=== PATIENT | female | born 1990 | race African-American/Black ===

== ENCOUNTER 2022-03-10 19:01 | Emergency (ER) | payer SELFPAY ==
--- NOTE | 2022-03-10 20:19 | RAD REPORT ---
EXAM DESCRIPTION: CT - Head Brain Wo Cont - 03/10/2022 8:12 pm CLINICAL HISTORY: Headache, uncomplicated Headache, drowsiness COMPARISON: No comparisons TECHNIQUE: All CT scans are performed using dose optimization technique as appropriate and may inclu de automated exposure control or mA/KV adjustment according to patient size. FINDINGS: No intracranial hemorrhage, hydrocephalus or extra-axial fluid collection.No areas of brai n edema or evidence of midline shift. The paranasal sinuses and mastoids are clear. The calvarium is intact. IMPRESSION: No acute intracranial abnormality.
--- NOTE | 2022-03-10 20:37 | RAD REPORT ---
EXAM DESCRIPTION: RAD - Chest Single View - 03/10/2022 8:28 pm CLINICAL HISTORY: CHEST PAIN Chest pain. COMPARISON: No comparisons FINDINGS: Portable technique limits examination quality. The lungs are grossly clear. The heart is upper limit of normal in size. No displaced fractures.
[2022-03-10 20:40] LABS: Absolute Lymphocytes (CBC) 3.1 K/uL (0.7-4.9); Hematocrit 34.3 % (36.0-45.0); Lymphocytes % 43.9 % (15.3-44.8); RBC Red Blood Cell Count 4.38 M/uL (3.86-4.86)
[2022-03-10 20:42] LABS: Urine Blood Negative (Negative); Urine Glucose Negative (Negative); Urine Protein Negative (Negative); Urine Specific Gravity >=1.030 (1.005-1.030); Urine pH 5.5 (5.0-7.0)
[2022-03-10 20:59] LABS: Protime INR 1.09
[2022-03-10 21:15] LABS: ALT/SGPT 12 U/L (12-78); AST/SGOT 8 U/L (15-37); Albumin 3.2 g/dL (3.4-5.0); Alkaline Phosphatase 67 U/L (45-117); BUN Blood Urea Nitrogen 9 mg/dL (7-18); Bicarbonate 26 mmol/L (21-32); Bilirubin Total 0.3 mg/dL (0.2-1.0); Glucose Level 91 mg/dL (74-106); Magnesium 1.8 mg/dL (1.8-2.4); NT PRO-BNP 33 pg/mL (<125); Potassium 3.8 mmol/L (3.5-5.1); Protein, Total 7.2 g/dL (6.4-8.2); Sodium Level 139 mmol/L (136-145)
[2022-03-10 21:34] LABS: Barbiturates NEGATIVE (NEGATIVE); Benzodiazepines NEGATIVE (NEGATIVE); Bilirubin Direct < 0.1 mg/dL (0-0.2); Cocaine NEGATIVE (NEGATIVE); METHAMPHETAM NEGATIVE (NEGATIVE); Methadone NEGATIVE (NEGATIVE); Opiates NEGATIVE (NEGATIVE); Phencyclidine NEGATIVE (NEGATIVE); THC Cannibis POSITIVE (NEGATIVE); Troponin High Sensitivity < 3.0 pg/mL (<58.9)
[2022-03-10] MEDS ORDERED: NA CHLORIDE 0.9% 1,000 ML ONE (21:41)
[2022-03-10] MEDS ORDERED: ACETAMINOPHEN 500 MG TAB ONE (21:41)
[2022-03-10] MEDS ORDERED: DIPHENHYDRAMINE 50 MG/ML VIAL ONE (21:41)
[2022-03-10] MEDS ORDERED: METOCLOPRAMIDE 10 MG/2mL INJ ONE (21:41)
--- NOTE | 2022-03-10 22:29 | EDPHYS ---
Physician Documentation [facility] Name: Porsha Andrade Age: 31 yrs Sex: Female : 1990 Arrival Date: 03/10/2022 Time: 19:06 Bed 7 Private MD: ED Physician Anselmo Hunter HPI: 03/10 20:05 This 31 yrs old Black Female presents to ER via Ambulatory with complaints of Nausea, mh7 Weakness, Migraine. 20:05 The patient complains of pain to the forehead. The patient describes the headache as mh7 intermittent. Onset: The symptoms/episode began/occurred 1 week(s) ago. Associated signs and symptoms: Pertinent positives: nausea, weakness, generalized, Pertinent negatives: altered mental status, dizziness, fever, malaise, neck stiffness, paresthesias, Photophobia rash, sinus congestion, sinus tenderness, vision changes, vision loss, vomiting, vertigo. Severity of symptoms: At its worst the pain was moderate, 2 day(s) ago, in the emergency department the pain has improved, moderately. Headache History: The patient has had previous headaches and this one is similar to previous episodes. The symptoms are alleviated by over the counter pain medication, OTC NSAIDS, quiet, sleep, the symptoms are aggravated by noise, stress. The patient has experienced similar episodes in the past, multiple times. States that she has had migraines for 15+ years but has not seen a doctor regularly. States that she has headaches almost daily. Intermittent bilateral upper chest tightness for months. 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 - Social history:: Smoking status: . ROS: 20:05 Constitutional: Negative for fever, chills, and weight loss, Eyes: Negative for injury, mh7 pain, redness, and discharge, ENT: Negative for injury, pain, and discharge, Neck: Negative for injury, pain, and swelling, Respiratory: Negative for shortness of breath, cough, wheezing, and pleuritic chest pain. 20:05 Back: Negative for injury and pain, : Negative for injury, bleeding, discharge, and swelling, MS/Extremity: Negative for injury and deformity, Skin: Negative for injury, rash, and discoloration, Psych: Negative for depression, anxiety, suicide ideation, homicidal ideation, and hallucinations, Allergy/Immunology: Negative for hives, rash, and allergies, Endocrine: Negative for neck swelling, polydipsia, polyuria, polyphagia, and marked weight changes, Hematologic/Lymphatic: Negative for swollen nodes, abnormal bleeding, and unusual bruising. 20:05 Abdomen/GI: Negative for abdominal pain, vomiting, diarrhea, constipation, abdominal cramps, abdominal distension, anorexia, dysphagia, hematemesis, black/tarry stool, rectal pain, rectal bleeding, bowel incontinence, flatulence. Exam: 20:05 Head/Face: Normocephalic, atraumatic. Eyes: Pupils equal round and reactive to light, mh7 extra-ocular motions intact. Lids and lashes normal. Conjunctiva and sclera are non-icteric and not injected. Cornea within normal limits. Periorbital areas with no swelling, redness, or edema. Neck: Trachea midline, no thyromegaly or masses palpated, and no cervical lymphadenopathy. Supple, full range of motion without nuchal rigidity, or vertebral point tenderness. No Meningismus. Chest/axilla: Normal chest wall appearance and motion. Nontender with no deformity. No lesions are appreciated. Cardiovascular: Regular rate and rhythm with a normal S1 and S2. No gallops, murmurs, or rubs. Normal PMI, no JVD. No pulse deficits. Respiratory: Lungs have equal breath sounds bilaterally, clear to auscultation and percussion. No rales, rhonchi or wheezes noted. No increased work of breathing, no retractions or nasal flaring. Abdomen/GI: Soft, non-tender, with normal bowel sounds. No distension or tympany. No guarding or rebound. No evidence of tenderness throughout. Back: No spinal tenderness. No costovertebral tenderness. Full range of motion. Skin: Warm, dry with normal turgor. Normal color with no rashes, no lesions, and no evidence of cellulitis. MS/ Extremity: Pulses equal, no cyanosis. Neurovascular intact. Full, normal range of motion. Neuro: Awake and alert, GCS 15, oriented to person, place, time, and situation. Cranial nerves II-XII grossly intact. Motor strength 5/5 in all extremities. Sensory grossly intact. Cerebellar exam normal. Normal gait. Psych: Awake, alert, with orientation to person, place and time. Behavior, mood, and affect are within normal limits. 20:05 Constitutional: The patient appears in no acute distress, alert, awake, uncomfortable. Vital Signs: 19:14 BP 110 / 85; Pulse 64; Resp 16; Temp 98.2(TE); Pulse Ox 100% on R/A; Weight 83.78 kg ll3 (M); Height 5 ft. 3 in. (160.02 cm) (R); Pain 5/10; 21:00 BP 118 / 63; Pulse 64; Resp 16; Pulse Ox 100% ; vc1 21:45 BP 123 / 56; Pulse 64; Resp 17; Pulse Ox 100% on R/A; vc1 19:14 Body Mass Index 32.72 (83.78 kg, 160.02 cm) ll3 [place] Coma Score: 22:25 Eye Response: spontaneous(4). Verbal Response: oriented(5). Motor Response: obeys mh7 commands(6). Total: 15. MDM: 22:25 Differential diagnosis: cluster headache, hypertensive headache, intracerebral mh7 hemorrhage, migraine, tension headache. Data reviewed: vital signs, nurses notes, lab test result(s), cardiac enzymes, CBC, electrolytes, urinalysis, urine drug screen, EKG, radiologic studies, CT scan, plain films. Data interpreted: Pulse oximetry: on room air is 100 %. Interpretation: normal. 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 Response to treatment: the patient's symptoms have resolved after treatment, the patient's blood pressure is in an acceptable range, mental status has returned to baseline, the patient no longer shows bradycardia, the patient is not short of breath, the patient is not tachycardic, the patient's pain is gone, the patient's temperature has normalized, the patient is now symptom free, patient is well hydrated. 22:28 Patient medically screened. 03/10 19:56 Order name: Basic Metabolic Panel; Complete Time: 21:52 03/10 19:56 Order name: CBC with Diff; Complete Time: 21:33 03/10 19:56 Order name: LFT's; Complete Time: 21:52 03/10 19:56 Order name: Magnesium; Complete Time: 21:52 03/10 19:56 Order name: NT PRO-BNP; Complete Time: 21:52 03/10 19:56 Order name: PT-INR; Complete Time: 21:33 03/10 19:56 Order name: Troponin HS; Complete Time: 21:52 03/10 19:56 Order name: XRAY Chest (1 view); Complete Time: 20:52 03/10 19:56 Order name: CT Head Brain wo Cont; Complete Time: 20:52 03/10 19:56 Order name: UDS; Complete Time: 21:52 03/10 20:42 Order name: Urine Dipstick-Ancillary; Complete Time: 20:52 EDMS 03/10 20:42 Order name: Urine --Ancillary (enter results); Complete Time: 21:33 9 03/10 19:56 Order name: EKG; Complete Time: 19:57 03/10 19:56 Order name: Cardiac monitoring; Complete Time: 21:56 03/10 19:56 Order name: EKG - Nurse/Tech; Complete Time: 21:13 03/10 19:56 Order name: IV Saline Lock; Complete Time: 21:13 03/10 19:56 Order name: Labs collected and sent; Complete Time: 21:14 03/10 19:56 Order name: O2 Per Protocol; Complete Time: 21:14 03/10 19:56 Order name: O2 Sat Monitoring; Complete Time: 21:14 03/10 19:56 Order name: Urine Dipstick-Ancillary (obtain specimen); Complete Time: 21:14 [facility] 03/10 19:56 Order name: Urine Test (obtain specimen); Complete Time: 21: Administered Medications: 21:55 Drug: NS 0.9% 1000 ml Route: IV; Rate: 1000 ml; Site: right antecubital; ke1 22:00 Follow up: IV Status: Completed infusion; IV Intake: 700ml vc1 21:55 Drug: Reglan (metoCLOPramide) 10 mg Route: IVP; Site: right antecubital; ke1 22:00 Follow up: Response: No adverse reaction; Marked relief of symptoms vc1 21:55 Drug: Benadryl (diphenhydrAMINE) 50 mg Route: IVP; Site: right antecubital; ke1 22:00 Follow up: Response: No adverse reaction; Marked relief of symptoms vc1 21:55 Drug: Tylenol 1000 mg Route: PO; ke1 22:00 Follow up: Response: No adverse reaction; Marked relief of symptoms; Pain is decreased vc1 Disposition Summary: 03/10/22 22:28 Discharge Ordered Location: Home [facility] Problem: an acute exacerbation [facility] Symptoms: have improved [facility] Condition: Stable [facility] Diagnosis - Headache 7 - Chest pain, unspecified 7 - Cannabis abuse [facility] Followup: [facility] - With: Private Physician - When: 1 - 2 days - Reason: Worsening of condition, Recheck today's complaints, Continuance of care, Re-evaluation by your physician Followup: [facility] - With: Emanuel Milligan MD - When: 1 - 2 days - Reason: Worsening of condition, Recheck today's complaints Discharge Instructions: - Discharge Summary Sheet [facility] - General Headache Without Cause mh7 - Cannabis Use Disorder mh7 - Nonspecific Chest Pain, Adult, [id number] [facility] Forms: - Medication Reconciliation Form 7 - Family Work Release [facility] - Thank You Letter 7 - Antibiotic Education 7 - Prescription Opioid Use [facility] Signatures: Dispatcher [employer] Anselmo Gresham MD MD 7 Maria Eugenia Arguelles RN RN ll3 Rivka Zhou RN RN ke1 [place] Drake RN vc1
--- NOTE | 2022-03-10 22:29 | ER ---
Nurse's Notes [facility] Name: Posrha Andrade Age: 31 yrs Sex: Female : 1990 Arrival Date: 03/10/2022 Time: 19:06 Bed 7 Private MD: Diagnosis: Headache;Chest pain, unspecified;Cannabis abuse Presentation: 03/10 19:14 Chief complaint: Patient states: C/ of weakness, migraine, CP, and nausea, "I've ll3 noticed when I take my medicine for my headaches it doesn't work, I will go to sleep and it will come back", states CP started 2 days ago. Coronavirus screen: Vaccine status: Patient reports being unvaccinated. At this time, the client does not indicate any symptoms associated with coronavirus-19. Ebola Screen: No symptoms or risks identified at this time. Initial Sepsis Screen: Does the patient meet any 2 criteria? No. Patient's initial sepsis screen is negative. Does the patient have a suspected source of infection? No. Patient's initial sepsis screen is negative. Risk Assessment: Do you want to hurt yourself or someone else? Patient reports no desire to harm self or others. Onset of symptoms was March 08, 2022. Care prior to arrival: Medication(s) given: Motrin, 400 mg, AT 1820. 19:14 Method Of Arrival: Ambulatory ll3 19:14 Acuity: CRISTOBAL 3 ll3 Triage Assessment: 19:20 General: Appears uncomfortable, Behavior is calm, cooperative. Pain: Complains of pain ll3 in H/A Pain currently is 6 out of 10 on a pain scale. Neuro: Reports headache. Cardiovascular: Denies chest pain, States "I had chest tightness earlier today but not right now". GI: Reports diarrhea, nausea, Patient currently denies vomiting. 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 - Social history:: Smoking status: . Screenin:20 Abuse screen: Denies threats or abuse. Nutritional screening: No deficits noted. vc1 Tuberculosis screening: No symptoms or risk factors identified. Fall Risk None identified. Assessment: 19:20 Reassessment: See triage assessment. vc1 19:20 GI: Abdomen is flat, non-distended. vc1 20:00 Reassessment: Patient and/or family updated on plan of care and expected duration. Pain vc1 level reassessed. Patient is alert, oriented x 3, equal unlabored respirations, skin warm/dry/pink. 21:00 Reassessment: Patient and/or family updated on plan of care and expected duration. Pain vc1 level reassessed. Patient is alert, oriented x 3, equal unlabored respirations, skin warm/dry/pink. Patient denies pain at this time. Patient states feeling better. Patient states symptoms have improved. Vital Signs: 19:14 BP 110 / 85; Pulse 64; Resp 16; Temp 98.2(TE); Pulse Ox 100% on R/A; Weight 83.78 kg ll3 (M); Height 5 ft. 3 in. (160.02 cm) (R); Pain 5/10; 21:00 BP 118 / 63; Pulse 64; Resp 16; Pulse Ox 100% ; vc1 21:45 BP 123 / 56; Pulse 64; Resp 17; Pulse Ox 100% on R/A; vc1 19:14 Body Mass Index 32.72 (83.78 kg, 160.02 cm) ll3 [place] Coma Score: 22:25 Eye Response: spontaneous(4). Verbal Response: oriented(5). Motor Response: obeys mh7 commands(6). Total: 15. ED Course: 19:06 Patient arrived in ED. rg4 19:20 Triage completed. ll3 19:20 Arm band placed on right wrist. ll3 19:30 Patient has correct armband on for positive identification. Placed in gown. Bed in low vc1 position. Call light in reach. Side rails up X2. Adult w/ patient. panel monitor on. Pulse ox on. NIBP on. 19:33 Rivka Zhou RN is Primary Nurse. ke1 19:35 Anselmo Hunter MD is Attending Physician. mh7 20:13 CT Head Brain wo Cont In Process Unspecified. EDMS 20:24 X-ray completed. Portable x-ray completed in exam room. Patient tolerated procedure mh1 well. 20:30 XRAY Chest (1 view) In Process Unspecified. EDMS 21:13 Inserted saline lock: 20 gauge in right antecubital area, using aseptic technique. ke1 22:27 Emanuel Milligan MD is Referral Physician. [facility] 22:50 No provider procedures requiring assistance completed. vc1 22:50 IV discontinued, intact, bleeding controlled, No redness/swelling at site. Pressure vc1 dressing applied. Administered Medications: 21:55 Drug: NS 0.9% 1000 ml Route: IV; Rate: 1000 ml; Site: right antecubital; ke1 22:00 Follow up: IV Status: Completed infusion; IV Intake: 700ml vc1 21:55 Drug: Reglan (metoCLOPramide) 10 mg Route: IVP; Site: right antecubital; ke1 22:00 Follow up: Response: No adverse reaction; Marked relief of symptoms vc1 21:55 Drug: Benadryl (diphenhydrAMINE) 50 mg Route: IVP; Site: right antecubital; ke1 22:00 Follow up: Response: No adverse reaction; Marked relief of symptoms vc1 21:55 Drug: Tylenol 1000 mg Route: PO; ke1 22:00 Follow up: Response: No adverse reaction; Marked relief of symptoms; Pain is decreased vc1 Intake: 22:00 IV: 700ml; Total: 700ml. vc1 Outcome: 22:28 Discharge ordered by . 7 22:50 Discharged to home ambulatory, with significant other. vc1 22:50 Condition: good 22:50 Discharge instructions given to patient, Instructed on discharge instructions, follow up and referral plans. Demonstrated understanding of instructions, follow-up care. 22:52 Patient left the ED. vc1 Signatures: Dispatcher [employer] EDMS Becky Gallardo 1 Safia Mckay rg4 Anselmo Hunter MD MD 7 Maria Eugenia Arguelles RN RN 3 [place] Drake RN RN 1 Rivka Zhou RN RN 1
[2022-03-11 01:51] VITALS: TEMP 98.2; O2SAT 100
[2022-03-11 01:53] VITALS: BP 123/56
--- NOTE | 2022-03-11 07:44 | EKG ---
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
== END 2022-03-10 22:52 | disposition home or self-care (01) ==
LOC: ER 19:01
DX: R51.9 Headache, unspecified (principal); R07.9 Chest pain, unspecified; F12.10 Cannabis abuse, uncomplicated; Z88.0 Allergy status to penicillin
CPT/HCPCS: 36415; 70450; 71045; 80048; 80076; 80307; 81003; 81025; 83735; 83880; 84484; 85025; 85610; 93005; 96374; 96375; 99284; J1200; J2765; J7030

== ENCOUNTER 2022-05-04 12:14 | Emergency (ER) | payer SELFPAY ==
[2022-05-04] MEDS ORDERED: IBUPROFEN 400 MG TAB ONE (12:46)
--- NOTE | 2022-05-04 13:11 | RAD REPORT ---
EXAM DESCRIPTION: RAD - Knee Left 3 View - 05/04/2022 12:59 pm CLINICAL HISTORY: PAIN COMPARISON: No comparisons FINDINGS: No acute fracture. No malalignment. No significant focal degenerative changes. Partially i gene plate and screw fixation in the mid femur. IMPRESSION: No acute osseous abnormality involving the left knee.
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
[2022-05-04] MEDS ORDERED: HYDROCODONE/APAP 7.5/325 MG TAB ONE (14:57)
[2022-05-04 15:37] VITALS: BP 98/67; TEMP 98.6; O2SAT 100
== END 2022-05-04 15:19 | disposition home or self-care (01) ==
LOC: ER 12:14
DX: S83.92XA Sprain of unspecified site of left knee, initial encounter (principal); Z88.0 Allergy status to penicillin
CPT/HCPCS: 99283

== ENCOUNTER 2022-05-19 13:35 | Emergency (ER) | payer SELFPAY ==
[2022-05-19 15:48] LABS: Urine Blood Negative (Negative); Urine Glucose Negative (Negative); Urine Protein Negative (Negative); Urine Specific Gravity >=1.030 (1.005-1.030); Urine pH 5.5 (5.0-7.0)
[2022-05-19 15:53] LABS: Absolute Lymphocytes (CBC) 2.7 K/uL (0.7-4.9); Hematocrit 34.9 % (36.0-45.0); Lymphocytes % 31.9 % (15.3-44.8); MCV 78.2 fL (80-100); MPV 6.9 fL (7.6-11.3); RBC Red Blood Cell Count 4.46 M/uL (3.86-4.86)
[2022-05-19 16:11] LABS: Albumin 3.5 g/dL (3.4-5.0); Bilirubin Total 0.6 mg/dL (0.2-1.0); Potassium 3.3 mmol/L (3.5-5.1); Protein, Total 7.8 g/dL (6.4-8.2)
[2022-05-19] MEDS ORDERED: DICYCLOMINE HCL 20 MG/2 ML AMP IM ONE (16:26)
[2022-05-19] MEDS ORDERED: ACETAMINOPHEN 500 MG TAB ONE (16:26)
[2022-05-19] MEDS ORDERED: POTASSIUM 25 MEQ EFFERV TAB ONE (17:30)
--- NOTE | 2022-05-19 18:18 | RAD REPORT ---
EXAM DESCRIPTION: US - Transvaginal OB - 05/19/2022 6:03 pm CLINICAL HISTORY: with pelvic pain COMPARISON: None. FINDINGS: The uterus measures 10 x 5 x 6 centimeters . A sac is present within the endometrium alberto uring 9 x 15 x 9 millimeters. A pole is not seen. A yolk sac not visualized. Right ovary normal in size and echotexture 1.5 centimeter hemorrhagic cyst. Left ovary not seen secon madelyn to overlying bowel gas The right and left adnexa unremarkable Small amount of free fluid IMPRESSION: Sac within and the endometrium most likely indicating an intrauterine . This ma y represent a viable in which the pole is not seen secondary to the early gestation. Incomplete is another consideration. Less likely this represents a pseudo gestational sac associated with an ectopic . This all should be correlated clinically with appropriate lab values. Followup endovaginal sonogram w ith serial beta hCGs in 1 week recommend
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
== END 2022-05-19 18:56 | disposition home or self-care (01) ==
LOC: ER 13:35
DX: O20.0 Threatened abortion (principal); Z3A.01 Less than 8 weeks gestation of pregnancy; Z88.0 Allergy status to penicillin
CPT/HCPCS: 36415; 76817; 80053; 81003; 83690; 84702; 85025; 86901; J0500

== ENCOUNTER 2022-05-21 18:02 | Emergency (ER) | payer SELFPAY ==
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
[2022-05-21 20:09] VITALS: BP 103/72; TEMP 97.9; O2SAT 100
== END 2022-05-21 19:30 | disposition home or self-care (01) ==
LOC: ER 18:02
DX: O02.81 Inappropriate change in quantitative human chorionic gonadotropin (hCG) in early pregnancy (principal)
CPT/HCPCS: 36415; 84702; 99281

== ENCOUNTER 2022-07-06 10:59 | Emergency (ER) | payer OTHER ==
--- OUTSIDE RECORDS SUMMARY | 2022-07-06 11:03 | XMS REPORT | Continuity of Care Document ---
:1990 Author Organization [facility] t Address [address] [place] [address] Care Team Providers Name Role Phone Pcp, Patient Does Not Have A Primary Care Physician +[id number] Merle Coronado MD Attending Clinician Payers Payer Name Policy Type Policy Number Effective Date Expiration Date S ource Problems Condition Condition Condition Status Onset Resolution Last Treating Co mments Source Name Details Category Date Date Treatment Clinician Date Obesity Obesity Disease Active Univers (BMI (BMI 8-05 ity of 30-39.9) 30-39.9) 00:00: [address] Allergies, Adverse Reactions, Alerts Allergy Allergy Status Severity Reaction(s) Onset Inactive Treating Comm ents Source Name Type Date Date Clinician Penicill Drug Active Hives Univers ins Allergy 8-05 ity of 00:00: [address] Social History Social Habit Start Date Stop Date Quantity Comments Source ASSERTION 2022-04-27 [facility] 00:00:00 [facility] History of Passive smoker [facility] tobacco use [facility] Exposure to 2022-06-07 2022-06-17 Not sure [facility] SARS-CoV-2 00:00:00 09:54:00 [facility] (event) [place] Tobacco use and 2022-06-17 2022-06-17 Smokeless tobacco Un iversity of exposure 00:00:00 00:00:00 non-user [facility] Alcohol intake 2022-06-17 2022-06-17 Ex-drinker [facility] 00:00:00 00:00:00 (finding) [facility] Sex Assigned At [birth year] [facility] 00:00:00 00:00:00 [facility] Smoking Status Start Date Stop Date Source Never smoked tobacco [facility] Medications Ordered Filled Start Stop Current Ordering Indication Dosage Frequency Signature Comments Components Source Medication Medication Date Date Medication? Clinician (SIG) Name Name [place] Yes 1{tbl} Take 1 Univ ers RX tablet 7-08 tablet by ity o f 00:00: mouth [address] [place] [address] (two) Medical times [facility] daily. Procedures This patient has no known procedures. Encounters Start End Encounter Admission Attending Care Care Encounter Source Date/Time Date/Time Type Type Clinicians Facility Department ID 2022-06-21 2022-06-21 Telephone [facility], [facility] [id number] [facility] 00:00:00 00:00:00 Merle THOMAS [id number] Jeffrey [id number] Ben PRYOR [id number] [address] Results This patient has no known results.
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
[2022-07-06 13:55] VITALS: BP 117/75; TEMP 99.1; O2SAT 100
== END 2022-07-06 12:59 | disposition home or self-care (01) ==
LOC: ER 10:59
DX: S90.212A Contusion of left great toe with damage to nail, initial encounter (principal); Z88.0 Allergy status to penicillin

== ENCOUNTER 2022-09-11 13:54 | Emergency (ER) | payer OTHER ==
--- OUTSIDE RECORDS SUMMARY | 2022-09-11 14:00 | XMS REPORT | Continuity of Care Document ---
:1990 Author Organization [facility] t Address [address] [place] [address] Care Team Providers Name Role Phone Pcp, Patient Does Not Have A Primary Care Physician [id number] MIKI PAULA Attending Clinician Unavailable Miki Paula MD Attending Clinician Ultrasound, Adc Mfm Attending Clinician Unavailable Marianela Roy MD Attending Clinician MARIANELA ROY Attending Clinician Unavailable 2, Adc Lab Attending Clinician Unavailable Doctor Unassigned, [place] Attending Clinician Unavailable Pob, Adc Lab Main Attending Clinician Unavailable Payers Payer Name Policy Type Policy Number Effective Date Expiration Date S ource [place] [id number] 2022 00:00:00 Problems Condition Condition Condition Status Onset Resolution Last Treating Co mments Source Name Details Category Date Date Treatment Clinician Date 20 weeks 20 weeks Disease Active 2021-11 Unive rs gestation gestation 0-25 ity of of of 00:00: [place] 00 [facility]i [place] [facility] Supervisio Supervisio Disease Active 2021-11 U nivers n of high n of high 0-25 ity of risk risk 00:00: [place] 00 Medi [place] in second in second Bran ch trimester trimester Previous Previous Disease Active 2021-11 Unive rs 0-25 [place] ante[place] antepartum 00 [place] dical condition condition Bran ch or or complicati complicati on on Obesity Obesity Disease Active Univers (BMI (BMI 8-05 ity of 30-39.9) 30-39.9) 00:00: [address] Allergies, Adverse Reactions, Alerts Allergy Allergy Status Severity Reaction(s) Onset Inactive Treating Comm ents Source Name Type Date Date Clinician Penicill Drug Active Hives Univers ins Allergy 8-05 ity of 00:00: Medical Branch PENICILL Drug Active Med Hives Univers INS Class 8-05 ity of 00:00: [place] [facility] [place] Penicill Drug Active Hives Univers ins Allergy 8-05 ity of 00:00: [address] Social History Social Habit Start Date Stop Date Quantity Comments Source ASSERTION 2022-04-27 [facility] 00:00:00 [facility] History of Passive smoker [facility] tobacco use [facility] Alcohol intake 2022-09-06 2022-09-06 Ex-drinker [facility] 00:00:00 00:00:00 (finding) [facility] Exposure to 2022-08-19 2022-08-[address] [facility] SARS-CoV-2 00:00:00 11:16:00 [facility] (event) [place] Tobacco use and 2022-06-17 2022-06-17 Smokeless tobacco Un iversity of exposure 00:00:00 00:00:00 non-user [facility] Sex Ass[birth year] Universit y of 00:00:00 00:00:00 [facility] Smoking Status Start Date Stop Date Source Never smoked tobacco [facility] Medications Ordered Filled Start Stop Current Ordering Indication Dosage Frequency Signature Comments Components Source Medication Medication Date Date Medication? Clinician (SIG) Name Name No known No No known Unive rs medications 9-27 medication it y of 10:41: s [address] Branch Yes 1{tbl} Take 1 Unive rs vitamin 9-27 tablet by ity of w/FA 00:00: mouth in [place] (PRENATABS 00 the Medical RX) tablet morning. Bran h Yes 1{tbl} Take 1 Unive rs vitamin 9-27 tablet by ity of w/FA 00:00: mouth in [place] (PRENATABS 00 the Medical RX) tablet morning. Bran h Yes 1{tbl} Take 1 Unive rs vitamin 9-27 tablet by ity of w/FA 00:00: mouth in [place] (PRENATABS 00 the Medical RX) tablet morning. [facility] Yes 1{tbl} Take 1 Unive rs vitamin 9-27 tablet by ity of w/FA 00:00: mouth in [place] (PRENATABS 00 the Medical RX) tablet morning. [facility] Yes 1{tbl} Take 1 Unive rs vitamin 9-27 tablet by ity of w/FA 00:00: mouth in [place] (PRENATABS 00 the Medical RX) tablet morning. [facility] Yes 1{tbl} Take 1 Unive rs vitamin 9-12 tablet by ity of w/FA 00:00: mouth in [place] (PRENATABS 00 the Medical RX) tablet morning. [facility] Yes 1{tbl} Take 1 Unive rs vitamin 9-12 tablet by ity of w/FA 00:00: mouth in [place] (PRENATABS 00 the Medical RX) tablet morning. [facility] 2021- No 1{tbl} Take 1 Univ ers vitamin 9-12 09-27 tablet by ity of w/FA 00:00: 00:00 mouth in [place] (PRENATABS 00 :00 the Medical RX) tablet morning. [facility] No known No No known Unive rs medications 9-02 medication it y of 11:10: s [place] 59 Medical Branch PRENATABS Yes 1{tbl} Take 1 Univ ers RX tablet 7-08 tablet by ity o f 00:00: mouth 2 [place] 00 (two) Medical times Branch daily. PRENATABS Yes 1{tbl} Take 1 Univ ers RX tablet 7-08 tablet by ity o f 00:00: mouth 2 [place] 00 (two) Medical times Branch daily. PRENATABS Yes 1{tbl} Take 1 Univ ers RX tablet 7-08 tablet by ity o f 00:00: mouth 2 [place] 00 (two) Medical times Branch daily. PRENATABS 2021- No 1{tbl} Take 1 Uni vers RX tablet 7-08 09-12 tablet by ity of 00:00: 00:00 mouth 2 [place] 00 :00 (two) Medical times Branch daily. Vital Signs Vital Name Observation Time Observation Value Comments Source Heart rate 2022-09-06 13:42:00 88 /min Universi ty of [facility] Branch Body temperature 2022-09-06 13:42:00 36.78 Evette Univ ersity of [facility] Branch Respiratory rate 2022-09-06 13:42:00 18 /min Univ ersity of [facility] Body height 2022-09-06 13:42:00 160 cm Universi ty of [facility] Branch Body weight 2022-09-06 13:42:00 83.915 kg Universi ty of [facility] [place] [facility] BMI 2022-09-06 13:42:00 32.77 kg/m2 Universi ty of [facility] Systolic blood 2022-09-06 13:42:00 128 mm[Hg] Univer sity of pressure [facility] Diastolic blood 2022-09-06 13:42:00 71 mm[Hg] Unive rsity of pressure [facility] Systolic blood 2022-08-09 16:00:00 106 mm[Hg] Univer sity of pressure [facility] Diastolic blood 2022-08-09 16:00:00 68 mm[Hg] Unive rsity of pressure [facility] Heart rate 2022-08-09 16:00:00 82 /min Universi ty of [facility] Body temperature 2022-08-09 16:00:00 36.78 Evette Univ ersity of [facility] Respiratory rate 2022-08-09 16:00:00 18 /min Univ ersity of [facility] Body height 2022-08-09 16:00:00 160 cm [facility]i ty of [place] [facility] Body weight 2022-08-09 16:00:00 79.833 kg [facility] [place] [facility] BMI 2022-08-09 16:00:00 31.18 kg/m2 [facility] [place] [facility] Systolic blood 2022-07-15 16:20:00 116 mm[Hg] Univer sity of pressure [place] [facility] Diastolic blood 2022-07-15 16:20:00 79 mm[Hg] Unive rsity of pressure [facility] Heart rate 2022-07-15 16:19:00 92 /min [facility] [place] [facility] Body temperature 2022-07-15 16:19:00 37.11 Evette [facility] Respiratory rate 2022-07-15 16:19:00 18 /min [facility] Body height 2022-07-15 16:19:00 160 cm [facility] Body weight 2022-07-15 16:19:00 80.287 kg [facility] BMI 2022-07-15 16:19:00 31.35 kg/m2 [facility] Procedures Procedure Date / Time Performed Performing Clinician Sourc e POCT URINALYSIS W/O 2022-09-06 00:00:00 Adum, Miki Plasencia [facility] SPECIFIC [facility] POCT URINALYSIS W/O 2022-08-09 16:05:00 Adum, Miki Plasencia [facility] EXTERNAL PROVIDER 2022-07-25 05:01:00 Doctor Unassigned, No [facility] POCT URINALYSIS W/O 2022-07-15 16:34:00 Adum, Miki Plasencia [facility] SCANNED LAB RESULTS 2022-07-15 05:01:00 Doctor Unassigned, No [facility] Encounters Start End Encounter Admission Attending Care Care Encounter Source Date/Time Date/Time Type Type Clinicians Facility Department ID 2022-09-06 2022-09-06 Outpatient R ADUM, [facility] [id number] Univers 08:00:00 09:17:46 MIKI shields [facility] 2022-09-06 2022-09-06 Routine Adum, [facility] [id number] Univers 08:00:00 09:17:46 Miki ARCHIBALD 350.1.13.10 ity of Visit [facility] [phone] [place] [address] Branch 2022-08-30 2022-08-30 Application Infrastructure Engineer Ultrasound, Adc [facility] 1.2 .[id number] [id number] Univers 11:00:00 11:46:03 Visit Marianela Roy 350.1.13. 10 ity of [place] [id number] Ia dical NAL [address] [facility] 2022-08-30 2022-08-30 Outpatient P MANUELA, [facility] [id number] Univers 11:00:00 11:00:00 MARIANELA ity of [facility] 2022-08-11 2022-08-11 Patient Adum, [facility] [id number] Univers 00:00:00 00:00:00 Secure Msg Miki THOMAS [id number] ity of [facility] [id number] [id number] Ia dical NAL [address] [facility] 2022-08-09 2022-08-09 Application Infrastructure Engineer 2, Adc Lab [facility] [id number] Univers 11:30:00 11:45:00 Visit Adum, Miki THOMAS 350.1.13.10 ity of [facility] [id number] [phone] Ia dical NAL 353 [facility] 2022-08-09 2022-08-09 Routine Adum, [facility] [id number] Univers 10:45:00 11:27:54 Miki THOMAS 350.1.13.10 ity of Visit [place] [id number] [place] [id number] Ia dical NAL [address] [place] [address] 2022-08-09 2022-08-09 Outpatient R ADUM, [facility] [id number] Univers 10:45:00 11:27:54 MIKI shields of [facility] 2022-07-27 2022-07-27 Telephone Adum, [facility] [id number] Univers 00:00:00 00:00:00 Miki Plasencia [place] 350.1.13.10 ity of [facility] 4[place] [id number] Ia dical NAL 134 [facility] 2022-07-25 2022-07-25 Orders Doctor BRIDGETTE [id number] Univers 00:00:00 00:00:00 Only Unassigned, CARLEY 350.1.13.[address] ity [address] [place] [facility] 4.2.7.2.686 Jesse as [phone] [address] 2022-07-22 2022-07-22 [facility] [id number] [id number] Univers 00:00:00 00:00:00 Miki THOMAS 350.1.13.10 ity of [place] 4[place]2.[place] [phone] Ia dical [facility] [address] [facility] 2022-07-15 2022-07-15 Application Infrastructure Engineer Radha, Adc Lab Main [facility] [id number] Univers 12:15:00 12:30:00 Visit Adum, Miki Plasencia MARTH[place] 350.1.13.10 ity of [place] 4[place]7.2.[place] [phone] [facility] [address] [facility] 2022-07-15 2022-07-15 [facility] [id number] Univers 11:00:00 11:57:44 MIKI ity of [facility] 2022-07-15 2022-07-15 [facility] 1.2.840.114 [id number] Univers 11:00:00 11:57:44 Miki THOMAS 350.1.13.10 ity of Visit [place] 4[place]2.[place] [id number] Ia dic[address] 2022-07-15 2022-07-15 Outpatient R ADUM, [facility] [id number] Univers 11:00:00 11:00:00 MIKI ity of [facility] 2022-07-15 2022-07-15 Orders Doctor ANGELES [id number] [id number] Univers 00:00:00 00:00:00 Only Unassigned, CARLEY 350.1.13.[address] [place] [facility] 4.2.7.2.686 Jesse as [phone] [address] 2022-06-21 2022-06-21 [facility] [id number] Univers 00:00:00 00:00:00 Miki Plasencia [place] 350.1.13.10 ity of [place] 4[place].2.[place] [id number] Ia dical NAL 134 [facility] 2022-06-20 2022-06-20 Telephone Adum, [facility] [id number] Univers 00:00:00 00:00:00 Miki Plasencia [place] 350.1.13.10 ity of [place] 4[place].2.[place] [id number] Ia dical NAL 134 [facility] 2022-06-17 2022-06-17 Application Infrastructure Engineer Radha, Adc Lab Main [facility] 1.2.8 [id number] [id number] Univers 12:30:00 12:45:00 Visit Adum, Miki LOTTTON 350.1.13.10 ity of [place] 4[place]7.2.[place] [phone] Ia dical NAL 353 [facility] 2022-06-17 2022-06-17 [facility] [id number] Univers 10:00:00 11:18:32 MIKI itarsenio [facility] 2022-06-17 2022-06-17 [facility] 1.2.840.114 [id number] Univers 10:00:00 11:18:32 Miki LOTTTON 350.1.13.10 ity of Visit [place] 4[place]2.[place] [phone] Ia dical NAL [address] [place] [address] 2022-06-17 2022-06-17 Outpatient R ADUM, [facility] [id number] Univers 10:00:00 11:18:32 MIKI shields [facility] Results Test Description Test Time Test Comments Results Result Comments Source POCT URINALYSIS W/O SPECIFIC GRAVITY 2022-09-06 13:45:00 Test Item Value Reference Range Interpretation Comme nts POCT PH U (test code = 3254) N/A 5-8 POCT U LEUK EST (test code = 3263) N/A Negative - Negative POCT U NIT (test code = 3262) N/A Negative - Negative POCT U PROT (test code = 3259) Negative Negative - Negative POCT U GLU (test code = 3256) Negative Negative - Negative POCT U KETONE (test code = 3258) N/A Negative - Negative POCT U BLD (test code = 3257) N/A Negative - Negative [facility] SPECIFIC [id number] 16:05:00 Test Item Value Reference Range Interpretation Comments POCT PH U (test code = 3254) n/a 5-8 POCT U LEUK EST (test code = n/a Negative - Negative 3263) POCT U NIT (test code = 3262) n/a Negative - Negative POCT U PROT (test code = 3259) negative Negative - Negative POCT U GLU (test code = 3256) negtive Negative - Negative POCT U KETONE (test code = 3258) n/a Negative - Negative POCT U BLD (test code = 3257) n/a Negative - Negative [facility] W/O SPECIFIC [id number] 16:34:00 Test Item Value Reference Range Interpretation Comments POCT PH U (test code = 3254) n/a 5-8 POCT U LEUK EST (test code = n/a Negative - Negative 3263) POCT U NIT (test code = 3262) n/a Negative - Negative POCT U PROT (test code = 3259) negative Negative - Negative POCT U GLU (test code = 3256) negative Negative - Negative POCT U KETONE (test code = 3258) n/a Negative - Negative POCT U BLD (test code = 3257) n/a Negative - Negative [facility]
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
[2022-09-11 16:02] VITALS: BP 103/72; TEMP 97.2; O2SAT 100
== END 2022-09-11 15:57 | disposition home or self-care (01) ==
LOC: ER 13:54
DX: O98.519 Other viral diseases complicating pregnancy, unspecified trimester (principal); U07.1 COVID-19; Z3A.00 Weeks of gestation of pregnancy not specified; Z88.0 Allergy status to penicillin
CPT/HCPCS: 87070; 87081; 87804 ×2; 99281; U0003

== ENCOUNTER 2023-09-30 10:06 | Emergency (ER) | payer SELFPAY ==
--- OUTSIDE RECORDS SUMMARY | 2023-09-30 10:10 | XMS REPORT | Continuity of Care Document ---
:1990 Author Organization [place] [facility] t Address [address] [facility] [address] [place] [address] Care Team Providers Name Role Phone Pcp, Patient Does Not Have A Primary Care Physician +[id number] MERLE CORONADO Attending Clinician Unavailable Merle Coronado MD Attending Clinician Pob, [facility] Lab Main Attending Clinician Unavailable Doctor Unassigned, [place] Attending Clinician Unavailable Nurse, [facility] Attending Clinician Unavailable 2, [facility] Attending Clinician Unavailable DREAD MARTINEZ Attending Clinician Unavailable Ultrasound, [facility] Attending Clinician Unavailable Dread Martinez MD Attending Clinician MERLE CORONADO Admitting Clinician Unavailable Merle Coronado MD Admitting Clinician Payers Payer Name Policy Type Policy Number Effective Date Expiration Date [facility] [id number] 2022 STAR 00:00:00 Problems Condition Condition Condition Status Onset Resolution Last Treating Co mments Source Name Details Category Date Date Treatment Clinician Date Previous Previous Disease Active Unive rs 3- ity of delivery delivery 00:00: [place] affecting affecting 00 [facility] [place] , , Br anch antepartum antepartum Encounter Encounter Disease Active Uni vers for female for female 01-12 it y of steriliz[place] ster[place] 00 Medical procedure procedure Bran ch Liveborn Liveborn Disease Active Unive rs infant, of , of 3-02 it y of [place] , , 00 [place] dical born in born in [facility] by by delivery delivery Status Status Disease Active Univers post post 3-02 ity of bilateral bilateral 00:00: [place] salpingect salpingect 00 Me dical tiffanyarsenio allen [place] 30 weeks 30 weeks Disease Active Overview: Un rajni gestation gestation 1 Formattin i ty of of of 00:00: g of this [place] 00 note [facility] might be Branch different from the original. Added automatic ally from request for surgery [id number] 39 weeks 39 weeks Disease Active Overview: Un rajni gestation gestation 1 Formattin i ty of of of 00:00: g of this [place] 00 note [facility] might be Branch different from the original. Added automatic ally from request for surgery [id number] 20 weeks 20 weeks Disease Active 2021-11 Unive rs gestation gestation 0-25 ity of of of 00:00: [place] 00 [facility] Supervisio Supervisio Disease Active 2021-11 U nivers n of high n of high 0-25 ity of risk risk 00:00: [place] 00 [facility] in second in second Bran ch trimester trimester Previous Previous Disease Active 2021-11 Unive rs 0-25 [place] of [place], [place], [place] antepartum antepartum 00 Me dical condition condition Bran ch or or complicati complicati on on Obesity Obesity Disease Active Univers (BMI (BMI 8-05 ity of 30-39.9) 30-39.9) 00:00: [facility] Allergies, Adverse Reactions, Alerts Allergy Allergy Status Severity Reaction(s) Onset Inactive Treating Comm ents Source Name Type Date Date Clinician PENICILL Drug Active Med Hives Univers INS Class 8-05 ity of 00:00: [facility] Penicill Drug Active Hives Univers ins Allergy 8-05 ity of 00:00: [facility] Penicill Drug Active Hives Univers ins Allergy 8-05 ity of 00:00: [facility] Social History Social Habit Start Date Stop Date Quantity Comments Source ASSERTION 2022-04-27 University of 00:00:[address] [facility] [place] History of tobacco Passive smoker Un iversity of use [facility] [place] [facility] 2023-02-04 2023-02-14 Not sure University SARS-CoV-2 (event) 00:00:00 13:11:[address] [facility] [place] Alcohol intake 2022-09-06 2022-09-06 Ex-drinker [facility] 00:00:00 00:00:00 (finding) [facility] [place] [place] Tobacco use and 2022-06-17 2022-06-17 Smokeless Universit y of exposure 00:00:00 00:00:00 tobacco non-user [facility] of Social 2022-06-17 2022-06-17 Univers ity of function 00:00:00 00:00:[address] [facility] [place] [place] Sex [birth year] Universit y of 00:00:00 00:00:[address] [facility] [place] [place] Smoking Status Start Date Stop Date Source Never smoked tobacco [facility] Medications Ordered Filled Start Stop Current Ordering Indication Dosage Frequency Signature Comments Components Source Medication Medication Date Date Medication? Clinician (SIG) Name Name Yes [id number] 1{tbl} Take 1 Univers vitamin 3-04 tablet by ity of w/FA tablet 00:00[place] 00 the Medical morning. Branch docusate Yes [id number] 200mg Take 2 U nivers 100 mg 3-04 capsules ity of capsule 00:00: by mouth [place] 00 once daily Medical as needed Branch for Constipati on. ferrous Yes [id number] 325mg Take 1 Un rajni sulfate 325 3-04 tablet by ity of mg (65 mg 00:00: [place] iron[place] 00 the Medical tablet morning Branch and 1 tablet in the evening. ibuprofen Yes [id number] 600mg Take 1 Univers 600 mg 3-04 tablet by ity of tablet 00:00: mouth [place] 00 every 6 Medical (six) Branch hours as needed (Pain). Take with food or milk. Yes [id number] 1{tbl} Take 1 Univers vitamin 3-04 tablet by ity of w/FA tablet 00:00: [place] 00 the Medical morning. Branch docusate Yes [id number] 200mg Take 2 U nivers 100 mg 3-04 capsules ity of capsule 00:00: by mouth [place] 00 once daily Medical as needed Branch for Constipati on. ferrous Yes [id number] 325mg Take 1 Un rajni sulfate 325 3-04 tablet by ity of mg (65 mg 00:00: [place] iron[place] 00 the Medical tablet morning Branch and 1 tablet in the evening. ibuprofen Yes [id number] 600mg Take 1 Univers 600 mg 3-04 tablet by ity of tablet 00:00: mouth [place] 00 every 6 Medical (six) Branch hours as needed (Pain). Take with food or milk. Yes [id number] 1{tbl} Take 1 Univers vitamin 3-04 tablet by ity of w/FA tablet 00:00: [place] 00 the Medical morning. Branch docusate Yes [id number] 200mg Take 2 U nivers 100 mg 3-04 capsules ity of capsule 00:00: by mouth [place] 00 once daily Medical as needed Branch for Constipati on. ferrous Yes [id number] 325mg Take 1 Un rajni sulfate 325 3-04 tablet by ity of mg (65 mg 00:00: [place] iron[place] 00 the Medical tablet morning Branch and 1 tablet in the evening. ibuprofen Yes [id number] 600mg Take 1 Univers 600 mg 3-04 tablet by ity of tablet 00:00: mouth [place] 00 every 6 Medical (six) Branch hours as needed (Pain). Take with food or milk. 2022- No [id number] 1{tbl} Take 1 Univers vitamin 3-04 06-14 tablet by ity of w/FA tablet 00:00: 00:00 mouth [place] :00 the Medical morning. Branch docusate 2022- No [id number] 200mg Take 2 Univers 100 mg 3-04 06-14 capsules ity of capsule 00:00: 00:00 by mouth [place] 00 :00 once daily Medical as needed Branch for Constipati on. ferrous 2022- No [id number] 325mg Take 1 U nivers sulfate 325 3-04 06-14 tablet by it y of mg (65 mg 00:00: 00:00 mouth in [place] iron) 00 :00 the Medical tablet morning Branch and 1 tablet in the evening. ibuprofen 2022-2022- No [id number] 600mg Take 1 Univers 600 mg -02 16-14 tablet by ity of tablet 00:00: 00:00 mouth [place] 00 :00 every 6 Medical (six) Branch hours as needed (Pain). Take with food or milk. HYDROcodone 2022-0 3- No [id number] 1{tbl} Take 1 U nivers -acetaminop 3-04 03-12 tablet by it y of hen 5-325 00:00: 05:59 mouth [place] mg tablet 00 :00 every 6 Medical (six) Branch hours as needed for Pain (scale 4-6) (Alternate with Ibuprofen) for up to 7 days. Indication s: acute pain HYDROcodone 2022-0 2022- No [id number] 1{tbl} Take 1 U nivers -acetaminop 3-04 03-12 tablet by it y of hen 5-325 00:00: 05:59 mouth [place] mg tablet 00 :00 every 6 Medical (six) Branch hours as needed for Pain (scale 4-6) (Alternate with Ibuprofen) for up to 7 days. Indication s: acute pain gabapentin 2022-0 2022- No [id number] 300mg Take 1 Univers 300 mg 3- 03-10 capsule by ity of capsule 00:00: 05:59 mouth in [place] 00 :00 the Medical morning Branch and 1 capsule at noon and 1 capsule in the evening. Do all this for 5 days. gabapentin 2022-0 3- No [id number] 300mg Take 1 Univers 300 mg 3-04 03-10 capsule by ity of capsule 00:00: 05:59 mouth in [place] 00 :00 the Medical morning Branch and 1 capsule at noon and 1 capsule in the evening. Do all this for 5 days. ibuprofen 2023-0 Yes 800mg 800 mg, Univ ers (IBU) 3-03 Oral, Q8H, ity of tablet 800 18:00: First dose [place] mg 00 on Mon Medical 01/13/23 at Branch 1200, Until Discontinu ed, Routine ibuprofen 2023-0 Yes 800mg 800 mg, Univ ers (IBU) 3-03 Oral, Q8H, ity of tablet 800 18:00: First dose [place] mg 00 on Mon Medical 01/13/23 at Branch 1200, Until Discontinu ed, Routine HYDROcodone 2023-0 Yes 2{tbl} 2 tablet, Univers -acetaminop 3-03 Oral, ity of hen (NORCO 15:00: Q6HPRN, [place] 5) 5-325 mg 00 Starting Medi [place] tablet 2 on Fri Branch tablet 01/13/23 at 0900, Until Discontinu ed, Routine, Pain (scale 7-10), Alternate with Ibuprofen HYDROcodone 2023-0 Yes 1{tbl} 1 tablet, Univers -acetaminop 3-03 Oral, ity of hen (NORCO 15:00: Q6HPRN, [place] 5) 5-325 mg 00 Starting Medi [place] tablet 1 on Fri Branch tablet 01/13/23 at 0900, Until Discontinu ed, Routine, Pain (scale 4-6), Alternate with Ibuprofen HYDROcodone 2023-0 Yes 2{tbl} 2 tablet, Univers -acetaminop 3-03 Oral, ity of hen (NORCO 15:00: Q6HPRN, [place] 5) 5-325 mg 00 Starting Medi [place] tablet 2 on Fri Branch tablet 01/13/23 at 0900, Until Discontinu ed, Routine, Pain (scale 7-10), Alternate with Ibuprofen HYDROcodone 2023-0 Yes 1{tbl} 1 tablet, Univers -acetaminop 3-03 Oral, ity of hen (NORCO 15:00: Q6HPRN, [place] 5) 5-325 mg 00 Starting Medi [place] tablet 1 on Fri Branch tablet 01/13/23 at 0900, Until Discontinu ed, Routine, Pain (scale 4-6), Alternate with Ibuprofen acetaminoph 202-0 2023- No 1000mg 1,000 mg, Univers en ADULT 01-1203 IV ity of (OFIRMEV) 21:00: 06:20 [place]fusion, [place] injection 00 :00 at 400 Medical 1,000 mg mL/hr Branch Administer over 15 Minutes, Q6H, 3 doses, First dose on Mon01/12/23 at 1500, Last dose on Mon01/13/23 at 0000, Routine
Indicatio n: Perioperat salomon Patient gabapentin 2022-0 Yes 300mg 300 mg, Uni vers (NEURONTIN) 01-12 Oral, TID, it y of capsule 300 20:00: First dose [place] mg 00 on Mikaela [facility] 01/12/23 at Branch 1400, Until Discontinu ed, Routine gabapentin 2023-0 Yes 300mg 300 mg, Uni vers (NEURONTIN) 01-12 Oral, TID, it y of capsule 300 20:00: First dose [place] mg 00 on [place]aela [facility] 01/12/23 at Branch 1400, Until Discontinu ed, Routine ketorolac 2023-0 2023- No 30mg 30 mg, Unive rs (TORADOL) 01-12 Slow IV ity of injection 18:00: 12:01 [place], Q6H, [place] 30 mg 00 :00 4 doses, Medical First dose Branch on Mon01/12/23 at 1200, Last dose on Mon01/13/23 at 0600, Routine diphenhydrA 2023-0 Yes 25mg 25 mg, Univ [facility] 01-12 Slow IV ity of (BENADRYL) 15:45: Push, [place] injection 23 Q6HPRN, Medical 25 mg Starting Branch on Mon01/12/23 at 0945, Until Discontinu ed, Routine, Itching diphenhydrA 2023-0 Yes 25mg 25 mg, [facility] 01-12 Oral, ity of (BENADRYL) 15:45: Q6HPRN, [place] tablet 25 23 Starting Medica l mg on [facility] Branch 01/12/23 at 0945, Until Discontinu ed, Routine, Sleep, Itching diphenhydrA 2023-0 Yes 25mg 25 mg, [facility] 01-12 Slow IV ity of (BENADRYL) 15:45: Push, [place] injection 23 Q6HPRN, Medical 25 mg Starting Branch on Mon01/12/23 at 0945, Until Discontinu ed, Routine, Itching diphenhydrA 2023-0 Yes 25mg 25 mg, [facility] 01-12 Oral, ity of (BENADRYL) 15:45: Q6HPRN, [place] tablet 25 23 Starting Medica l mg on [place] Branch 01/12/23 at 0945, Until Discontinu ed, Routine, Sleep, Itching ondansetron 2023-0 Yes 4mg 4 mg, Slow Univers (ZOFRAN 3-02 IV Push, ity of (PF)) 15:45: Q8HPRN, [place] injection 4 22 Starting Medi [place] mg on [place] Branch 01/12/23 at 0945, Until Discontinu ed, Routine, Nausea and Vomiting (N/V) bisacodyL 3-0 Yes 10mg 10 mg, Univer s (DULCOLAX) 3 Rectal, ity of suppository 15:45: QDAILYPRN, [place] 10 mg 22 Starting Medical on [place] Branch 01/12/23 at 0945, Until Discontinu ed, Routine, Constipati on simethicone 3-0 Yes 160mg 160 mg, Un rajni (GAS RELIEF 01-12 Oral, ity of (SIMETHICON 15:45: PC+HSPRN, [place] E)) 22 Starting Medical chewable on [facility] Branch tablet 160 01/12/23 at mg 0945, Until Discontinu ed, Routine, Gas docusate 2022-0 Yes 200mg 200 mg, Unive rs (COLACE) 01-12 Oral, ity of capsule 200 15:45: QDAILYPRN, [place] mg 22 Starting Medical on [facility] Branch 01/12/23 at 0945, Until Discontinu ed, Routine, Constipati on magnesium 2022-0 Yes 30mL 30 mL, Univer s hydroxide 01-12 Oral, ity of (MILK OF 15:45: QDAILYPRN, [place] MAGNESIA) 22 Starting Medica l 400 mg/5 mL on [facility] Branch suspension 01/12/23 at 30 mL 0945, Until Discontinu ed, Routine, Constipati on ondansetron 3-0 Yes 4mg 4 mg, Slow Univers (ZOFRAN -02 IV Push, ity of (PF)) 15:45: Q8HPRN, [place] injection 4 22 Starting Medi [place] mg on [facility] Branch 01/12/23 at 0945, Until Discontinu ed, Routine, Nausea and Vomiting (N/V) bisacodyL 3-0 Yes 10mg 10 mg, Univer s (DULCOLAX) 3 Rectal, ity of suppository 15:45: QDAILYPRN, [place] 10 mg 22 Starting Medical on [facility] Branch 3/2/23 at 0945, Until Discontinu ed, Routine, Constipati on simethicone Yes 160mg 160 mg, Un rajni (GAS RELIEF 01-12 Oral, ity of (SIMETHICON 15:45: PC+HSPRN, [place] E)) 22 Starting Medical chewable on [place] Branch tablet 160 01/12/23 at mg 0945, Until Discontinu ed, Routine, Gas docusate Yes 200mg 200 mg, Unive rs (COLACE) 01-12 Oral, ity of capsule 200 15:45: QDAILYPRN, [place] mg 22 Starting Medical on [place] Branch 01/12/23 at 0945, Until Discontinu ed, Routine, Constipati on magnesium Yes 30mL 30 mL, Univer s hydroxide 01-12 Oral, ity of (MILK OF 15:45: QDAILYPRN, [place] MAGNESIA) 22 Starting Medica l 400 mg/5 mL on [facility] suspension 01/12/23 at 30 mL 0945, Until Discontinu ed, Routine, Constipati on lactated 2022-0 2022- No 1000mL at 125 [facility] [place] ers ringers IV 01-12 03-03 mL/hr, ity of infusion 15:45: 00:19 1,000 mL, [place] 1,000 mL 22 :02 IV Medical Infusion, Branch PRN, 1 dose, Starting on [place] 01/12/23 at 0945, Until [place] 01/12/23 at 1819, Routine sodium 2022-0 Yes PRN, Univers chloride 01-12 Starting ity of 0.9 % 15:26: on [place] irrigation 00 01/12/23 at [facility] [place] solution 0926, Branch Until Discontinu ed, Intra-op sodium 2022-0 Yes PRN, Univers chloride 01-12 Starting ity of 0.9 % 15:26: on [place]a [place] irrigation 00 01/12/23 at [facility] [place] solution 0926, Branch Until Discontinu ed, Intra-op lactated 2022-0 2022- No 1000mL at 125 [facility] [place] ers ringers IV 01-12 03-02 mL/hr, ity of infusion 12:15: 15:55 1,000 mL, [place] 1,000 mL 00 :15 IV Medical Infusion, Branch CONTINUOUS , Starting on [place] 01/12/23 at 0615, Until [place] 01/12/23 at 0955, Routine lactated 2022- No 500mL at 999 Unive rs ringers IV 01-12 mL/hr, 500 it y of infusion 12:15: 13:48 mL, IV [place] 500 mL 00 :00 Infusion, Medical ONCE, 1 Branch dose, On [place] 01/12/23 at 0615, Routine sodium 2022- No 30mL 30 mL, Univers citrate-cit 01-12 Oral, ity of clau acid 12:14: 13:48 PRE-PROCED [place] (BICITRA) 00 :00 URE ONCE, Medic al 500-334 1 dose, Branch mg/5 mL Starting solution 30 on [place]ael[place] mL 01/12/23 at 0614, Until [place] 01/12/23 at 0748, Routine, Surgery/Pr ocedure ferrous 2021-11 Yes [id number] 325mg Take 1 Un rajni sulfate 325 2-23 tablet by ity of mg (65 mg 00:00: mouth [place] iron) 00 the Medical tablet morning Branch and 1 tablet in the evening. ascorbic 2021-11 Yes [id number] 500mg Take 1 U nivers acid, 2-23 tablet by ity of vitamin C, 00:00: mouth in [place] 500 mg 00 the Medical tablet morning Branch and 1 tablet in the evening. ferrous 2021-11 Yes [id number] 325mg Take 1 Un rajni sulfate 325 2-23 tablet by ity of mg (65 mg 00:00: [place] iron) 00 the Medical tablet morning Branch and 1 tablet in the evening. ascorbic 2021-11 Yes [id number] 500mg Take 1 U nivers acid, 2-23 tablet by ity of vitamin C, 00:00: mouth in [place] 500 mg 00 the Medical tablet morning Branch and 1 tablet in the evening. ferrous 2021-11 Yes [id number] 325mg Take 1 Un rajni sulfate 325 2-23 tablet by ity of mg (65 mg 00:00: [place] iron) 00 the Medical tablet morning Branch and 1 tablet in the evening. ascorbic 2021-11 Yes [id number] 500mg Take 1 U nivers acid, 2-23 tablet by ity of vitamin C, 00:00: mouth in [place] 500 mg 00 the Medical tablet morning Branch and 1 tablet in the evening. ferrous 2021-11 Yes [id number] 325mg Take 1 Un rajni sulfate 325 2-23 tablet by ity of mg (65 mg 00:00: [place] iron[place] 00 the Medical tablet morning Branch and 1 tablet in the evening. ascorbic 2021-11 Yes [id number] 500mg Take 1 U nivers acid, 2-23 tablet by ity of vitamin C, 00:00: mouth in [place] 500 mg 00 the Medical tablet morning Branch and 1 tablet in the evening. ferrous 2021-11 Yes [id number] 325mg Take 1 Un rajni sulfate 325 2-23 tablet by ity of mg (65 mg 00:00: [place] iron) 00 the Medical tablet morning Branch and 1 tablet in the evening. ascorbic 2021-11 Yes [id number] 500mg Take 1 U nivers acid, 2-23 tablet by ity of vitamin C, 00:00: mouth in [place] 500 mg 00 the Medical tablet morning Branch and 1 tablet in the evening. ferrous 2021-11 Yes [id number] 325mg Take 1 Un rajni sulfate 325 2-23 tablet by ity of mg (65 mg 00:00: [place] iron) 00 the Medical tablet morning Branch and 1 tablet in the evening. ascorbic 2021-11 Yes [id number] 500mg Take 1 U nivers acid, 2-23 tablet by ity of vitamin C, 00:00: mouth in [place] 500 mg 00 the Medical tablet morning Branch and 1 tablet in the evening. ferrous 2021-11 Yes [id number] 325mg Take 1 Un rajni sulfate 325 2-23 tablet by ity of mg (65 mg 00:00: [place] iron[place] 00 the Medical tablet morning Branch and 1 tablet in the evening. ascorbic 2021-11 Yes [id number] 500mg Take 1 U nivers acid, 2-23 tablet by ity of vitamin C, 00:00: mouth in [place] 500 mg 00 the Medical tablet morning Branch and 1 tablet in the evening. ferrous 2021-11 Yes [id number] 325mg Take 1 Un rajni sulfate 325 2-23 tablet by ity of mg (65 mg 00:00: [place] iron[place] 00 the Medical tablet morning Branch and 1 tablet in the evening. ascorbic 2021-11 Yes [id number] 500mg Take 1 U nivers acid, 2-23 tablet by ity of vitamin C, 00:00: mouth in [place] 500 mg 00 the Medical tablet morning Branch and 1 tablet in the evening. ferrous 2021-11 Yes [id number] 325mg Take 1 Un rajni sulfate 325 2-23 tablet by ity of mg (65 mg 00:00: [place] iron) 00 the Medical tablet morning Branch and 1 tablet in the evening. ascorbic 2021-11 Yes [id number] 500mg Take 1 U nivers acid, 2-23 tablet by ity of vitamin C, 00:00: mouth in [place] 500 mg 00 the Medical tablet morning Branch and 1 tablet in the evening. ferrous 2021-11 Yes [id number] 325mg Take 1 Un rajni sulfate 325 2-23 tablet by ity of mg (65 mg 00:00: [place] iron[place] 00 the Medical tablet morning Branch and 1 tablet in the evening. ascorbic 2021-11 Yes [id number] 500mg Take 1 U nivers acid, 2-23 tablet by ity of vitamin C, 00:00: mouth in [place] 500 mg 00 the Medical tablet morning Branch and 1 tablet in the evening. ferrous 2021-11 Yes [id number] 325mg Take 1 Un rajni sulfate 325 2-23 tablet by ity of mg (65 mg 00:00: [place] iron[place] 00 the Medical tablet morning Branch and 1 tablet in the evening. ascorbic 2021-11 Yes [id number] 500mg Take 1 U nivers acid, 2-23 tablet by ity of vitamin C, 00:00: mouth in [place] 500 mg 00 the Medical tablet morning Branch and 1 tablet in the evening. ferrous 2021-11 Yes [id number] 325mg Take 1 Un rajni sulfate 325 2-23 tablet by ity of mg (65 mg 00:00: [place] iron[place] 00 the Medical tablet morning Branch and 1 tablet in the evening. ascorbic 2021-11 Yes [id number] 500mg Take 1 U nivers acid, 2-23 tablet by ity of vitamin C, 00:00: mouth in [place] 500 mg 00 the Medical tablet morning Branch and 1 tablet in the evening. ferrous 2021-11 Yes [id number] 325mg Take 1 Un rajni sulfate 325 2-23 tablet by ity of mg (65 mg 00:00: [place] iron) 00 the Medical tablet morning Branch and 1 tablet in the evening. ascorbic 2021-11 Yes [id number] 500mg Take 1 U nivers acid, 2-23 tablet by ity of vitamin C, 00:00: mouth in [place] 500 mg 00 the Medical tablet morning Branch and 1 tablet in the evening. ferrous 2021-11 Yes [id number] 325mg Take 1 Un rajni sulfate 325 2-23 tablet by ity of mg (65 mg 00:00: [place] iron[place] 00 the Medical tablet morning Branch and 1 tablet in the evening. ascorbic 2021-11 Yes [id number] 500mg Take 1 U nivers acid, 2-23 tablet by ity of vitamin C, 00:00: mouth in [place] 500 mg 00 the Medical tablet morning Branch and 1 tablet in the evening. ferrous 2021-11 Yes [id number] 325mg Take 1 Un rajni sulfate 325 2-23 tablet by ity of mg (65 mg 00:00: [place] iron[place] 00 the Medical tablet morning Branch and 1 tablet in the evening. ascorbic 2021-11 Yes [id number] 500mg Take 1 U nivers acid, 2-23 tablet by ity of vitamin C, 00:00: mouth in [place] 500 mg 00 the Medical tablet morning Branch and 1 tablet in the evening. ferrous 2021-11 Yes [id number] 325mg Take 1 Un rajni sulfate 325 2-23 tablet by ity of mg (65 mg 00:00: [place] iron[place] 00 the Medical tablet morning Branch and 1 tablet in the evening. ascorbic 2021-11 Yes [id number] 500mg Take 1 U nivers acid, 2-23 tablet by ity of vitamin C, 00:00: mouth in [place] 500 mg 00 the Medical tablet morning Branch and 1 tablet in the evening. ferrous 2021-11- No [id number] 325mg Take 1 U nivers sulfate 325 2-23 03-04 tablet by it y of mg (65 mg 00:00: 00:00 mouth in [place] iron) 00 :00 the Medical tablet morning Branch and 1 tablet in the evening. ascorbic 2021-11- No [id number] 500mg Take 1 Univers acid, 2-23 03-04 tablet by ity of vitamin C, 00:00: 00:00 mouth [place] 500 mg 00 :00 the Medical tablet morning Branch and 1 tablet in the evening. No known No No known Unive rs medications 9-27 medication it y of 10:41: s [place] 53 Medical Branch Yes 1{tbl} Take 1 Unive rs vitamin 9-27 tablet by ity of w/FA 00:00: mouth in [place] (PRENATABS 00 the Medical RX) tablet morning. [facility] Yes 1{tbl} Take 1 Unive rs vitamin 9-27 tablet by ity of w/FA 00:00: mouth in [place] (PRENATABS 00 the Medical RX) tablet morning. [facility] Yes 1{tbl} Take 1 Unive rs vitamin 9-27 tablet by ity of w/FA 00:00: mouth in [place] (PRENATABS 00 the Medical RX) tablet morning. [facility] Yes 1{tbl} Take 1 Unive rs vitamin 9-27 tablet by ity of w/FA 00:00: mouth in [place] (PRENATABS 00 the Medical RX) tablet morning. [facility] Yes 1{tbl} Take 1 Unive rs vitamin 9-27 tablet by ity of w/FA 00:00: mouth in [place] (PRENATABS 00 the Medical RX) tablet morning. [facility] Yes 1{tbl} Take 1 Unive rs vitamin 9-27 tablet by ity of w/FA 00:00: mouth in [place] (PRENATABS 00 the Medical RX) tablet morning. [facility] Yes 1{tbl} Take 1 Unive rs vitamin 9-27 tablet by ity of w/FA 00:00: mouth in [place] (PRENATABS 00 the Medical RX) tablet morning. [facility] Yes 1{tbl} Take 1 Unive rs vitamin 9-27 tablet by ity of w/FA 00:00: mouth in [place] (PRENATABS 00 the Medical RX) tablet morning. [facility] Yes 1{tbl} Take 1 Unive rs vitamin 9-27 tablet by ity of w/FA 00:00: mouth in [place] (PRENATABS 00 the Medical RX) tablet morning. [facility] Yes 1{tbl} Take 1 Unive rs vitamin 9-27 tablet by ity of w/FA 00:00: mouth in [place] (PRENATABS 00 the Medical RX) tablet morning. [facility] Yes 1{tbl} Take 1 Unive rs vitamin 9-27 tablet by ity of w/FA 00:00: mouth in [place] (PRENATABS 00 the Medical RX) tablet morning. [facility] Yes 1{tbl} Take 1 Unive rs vitamin 9-27 tablet by ity of w/FA 00:00: mouth in [place] (PRENATABS 00 the Medical RX) tablet morning. [facility] Yes 1{tbl} Take 1 Unive rs vitamin 9-27 tablet by ity of w/FA 00:00: mouth in [place] (PRENATABS 00 the Medical RX) tablet morning. [facility] Yes 1{tbl} Take 1 Unive rs vitamin 9-27 tablet by ity of w/FA 00:00: mouth in [place] (PRENATABS 00 the Medical RX) tablet morning. [facility] Yes 1{tbl} Take 1 Unive rs vitamin 9-27 tablet by ity of w/FA 00:00: mouth in [place] (PRENATABS 00 the Medical RX) tablet morning. [facility] Yes 1{tbl} Take 1 Unive rs vitamin 9-27 tablet by ity of w/FA 00:00: mouth in [place] (PRENATABS 00 the Medical RX) tablet morning. [facility] Yes 1{tbl} Take 1 Unive rs vitamin 9-27 tablet by ity of w/FA 00:00: mouth in [place] (PRENATABS 00 the Medical RX) tablet morning. [facility] Yes 1{tbl} Take 1 Unive rs vitamin 9-27 tablet by ity of w/FA 00:00: mouth in [place] (PRENATABS 00 the Medical RX) tablet morning. [facility] Yes 1{tbl} Take 1 Unive rs vitamin 9-27 tablet by ity of w/FA 00:00: mouth in [place] (PRENATABS 00 the Medical RX) tablet morning. [facility] Yes 1{tbl} Take 1 Unive rs vitamin 9-27 tablet by ity of w/FA 00:00: mouth in [place] (PRENATABS 00 the Medical RX) tablet morning. [facility] Yes 1{tbl} Take 1 Unive rs vitamin 9-27 tablet by ity of w/FA 00:00: mouth in [place] (PRENATABS 00 the Medical RX) tablet morning. [facility] Yes 1{tbl} Take 1 Unive rs vitamin 9-27 tablet by ity of w/FA 00:00: mouth in [place] (PRENATABS 00 the Medical RX) tablet morning. [facility] Yes 1{tbl} Take 1 Unive rs vitamin 9-27 tablet by ity of w/FA 00:00: mouth in [place] (PRENATABS 00 the Medical RX) tablet morning. [facility] Yes 1{tbl} Take 1 Unive rs vitamin 9-27 tablet by ity of w/FA 00:00: mouth in [place] (PRENATABS 00 the Medical RX) tablet morning. [facility] Yes 1{tbl} Take 1 Unive rs vitamin 9-27 tablet by ity of w/FA 00:00: mouth in [place] (PRENATABS 00 the Medical RX) tablet morning. [facility] 2022- No 1{tbl} Take 1 Univ ers vitamin 9-27 03-04 tablet by ity of w/FA 00:00: 00:00 mouth in [place] (PRENATABS 00 :00 the Medical RX) tablet morning. [facility] Yes 1{tbl} Take 1 Unive rs vitamin 9-12 tablet by ity of w/FA 00:00: mouth in [place] (PRENATABS 00 the Medical RX) tablet morning. [facility] Yes 1{tbl} Take 1 Unive rs vitamin 9-12 tablet by ity of w/FA 00:00: mouth in [place] (PRENATABS 00 the Medical RX) tablet morning. [facility] 2021- No 1{tbl} Take 1 Univ ers vitamin 9-12 09-27 tablet by ity of w/FA 00:00: 00:00 mouth in [place] (PRENATABS 00 :00 the Medical RX) tablet morning. Branc h No known No No known Unive rs medications 902 medication it y of 11:10: s [place] [facility] PRENATABS Yes 1{tbl} Take 1 Univ ers RX tablet 7-08 tablet by ity o f 00:00: mouth 2 [place] 00 (two) Medical times Branch daily. PRENATABS Yes 1{tbl} Take 1 Univ ers RX tablet 7-08 tablet by ity o f 00:00: mouth 2 [place] 00 (two) Medical times Branch daily. PRENATABS Yes 1{tbl} Take 1 Univ ers RX tablet 7-08 tablet by ity o f 00:00: mouth 2 [place] 00 (two) Medical times Branch daily. PRENATABS 2021- No 1{tbl} Take 1 Uni vers RX tablet 7-08 09-12 tablet by ity of 00:00: 00:00 mouth 2 [place] 00 :00 (two) Medical times Branch daily. Vital Signs Vital Name Observation Time Observation Value Comments Source Systolic blood 2023-04-26 16:03:00 101 mm[Hg] Univer sity [facility] Diastolic blood 2023-04-26 16:03:00 66 mm[Hg] Unive rsity [facility] Heart rate 2023-04-26 16:03:00 80 /min [facility] Body temperature 2023-04-26 16:03:00 36.72 Evette [facility] Respiratory rate 2023-04-26 16:03:00 18 /min [facility] Body height 2023-04-26 16:03:00 160 cm [facility] Body weight 2023-04-26 16:03:00 89.812 kg [facility] BMI 2023-04-26 16:03:00 35.07 kg/m2 [facility] Systolic blood 2023-02-14 18:31:00 134 mm[Hg] Univer sity [facility] Diastolic blood 2023-02-14 18:31:00 87 mm[Hg] Unive rsity [facility] Heart rate 2023-02-14 18:31:00 89 /min [facility] [place] [facility] Respiratory rate 2023-02-14 18:31:00 16 /min Univ [facility] [place] [facility] Body height 2023-02-14 18:31:00 160 cm [facility] [place] [facility] Body weight 2023-02-14 18:31:00 82.736 kg [facility] [place] [facility] BMI 2023-02-14 18:31:00 32.31 kg/m2 [facility] [place] [facility] Oxygen saturation in 2023-02-14 18:31:00 96 /min [facility] of Arterial blood by [facility] Pulse oximetry Branch Systolic blood 2023-01-18 19:32:00 120 mm[Hg] Univer sity of pressure [place] [facility] Diastolic blood 2023-01-18 19:32:00 81 mm[Hg] Unive rsity of [facility] [place] [facility] Heart rate 2023-01-18 19:32:00 72 /min [facility] [place] [facility] Body temperature 2023-01-18 19:32:00 36.72 Evette [facility] [place] [facility] Respiratory rate 2023-01-18 19:32:00 16 /min [facility] [place] [facility] Body height 2023-01-18 19:32:00 160 cm [facility] [place] [facility] Body weight 2023-01-18 19:32:00 91.309 kg [facility] [place] [facility] BMI 2023-01-18 19:32:00 35.66 kg/m2 [facility] [place] [facility] Systolic blood 2023-01-14 13:38:00 122 mm[Hg] Univer sity of [facility] [place] [facility] Diastolic blood 2023-01-14 13:38:00 85 mm[Hg] Unive rsity of [facility] [place] [facility] Heart rate 2023-01-14 13:38:00 92 /min [facility] [place] [facility] Oxygen saturation in 2023-01-14 13:38:00 100 /min [facility] of Arterial blood by [facility] Pulse oximetry Branch Body temperature 2023-01-14 13:34:00 37.11 Evette [facility] [place] [facility] Respiratory rate 2023-01-14 10:04:00 16 /min [facility] [place] [facility] Body height 2023-01-12 12:25:00 160 cm [facility] [place] [facility] [place] Body weight 2023-01-12 12:25:00 93.895 kg [facility] [place] [facility] BMI 2023-01-12 12:25:00 36.67 kg/m2 [facility] [place] [facility] Systolic blood 2023-01-12 16:45:00 98 mm[Hg] Univer sity of [facility] [place] [facility] Diastolic blood 2023-01-12 16:45:00 58 mm[Hg] Unive rsity of [facility] [place] [facility] Heart rate 2023-01-12 16:45:00 72 /min [facility] [place] [facility] Oxygen saturation in 2023-01-12 16:45:00 93 /min [facility] Arterial blood by [facility] Pulse oximetry Branch Body temperature 2023-01-12 15:42:00 36.78 Evette Univ [facility] [place] [facility] [place] Body height 2023-01-12 12:25:00 160 cm [facility] [place] [facility] [place] Body weight 2023-01-12 12:25:00 93.895 kg [facility] [place] [facility] BMI 2023-01-12 12:25:00 36.67 kg/m2 [facility] [place] [facility] Systolic blood 2023-01-04 20:07:00 110 mm[Hg] Univer sity of [facility] [place] [facility] Diastolic blood 2023-01-04 20:07:00 72 mm[Hg] Unive rsity of [facility] [place] [facility] [place] Heart rate 2023-01-04 20:07:00 77 /min Universi ty of [facility] [place] Body temperature 2023-01-04 20:07:00 36.67 Evette Univ ersity of [facility] [place] Respiratory rate 2023-01-04 20:07:00 17 /min Univ ersity [facility] [place] [facility] [place] Body height 2023-01-04 20:07:00 160 cm [facility] [place] [facility] Body weight 2023-01-04 20:07:00 94.348 kg [facility] [place] [facility] BMI 2023-01-04 20:07:00 36.85 kg/m2 [facility] [place] [facility] Systolic blood 2022-12-27 15:25:00 114 mm[Hg] Univer sity of [facility] [place] [facility] Diastolic blood 2022-12-27 15:25:00 76 mm[Hg] Unive rsity of [facility] [place] [facility] Heart rate 2022-12-27 15:25:00 84 /min [facility] [place] [facility] Body temperature 2022-12-27 15:25:00 37 Evette [facility] [place] [facility] Respiratory rate 2022-12-27 15:25:00 16 /min [facility] [place] [facility] Body height 2022-12-27 15:25:00 160 cm [facility] [place] [facility] Body weight 2022-12-27 15:25:00 93.033 kg [facility] [place] [facility] BMI 2022-12-27 15:25:00 36.33 kg/m2 [facility] [place] [facility] Systolic blood 2022-12-20 17:14:00 121 mm[Hg] Univer sity of [facility] [place] [facility] Diastolic blood 2022-12-20 17:14:00 75 mm[Hg] Unive rsity of [facility] [place] [facility] Heart rate 2022-12-20 17:14:00 84 /min [facility] [place] [facility] Body temperature 2022-12-20 17:14:00 36.72 Evette [facility] [place] [facility] Respiratory rate 2022-12-20 17:14:00 16 /min Univ [facility] [place] [facility] Body height 2022-12-20 17:14:00 160 cm [facility] [place] [facility] Body weight 2022-12-20 17:14:00 92.534 kg [facility] [place] [facility] BMI 2022-12-20 17:14:00 36.14 kg/m2 [facility] [place] [facility] Systolic blood 2022-12-06 19:14:00 126 mm[Hg] Univer sity of [facility] [place] [facility] Diastolic blood 2022-12-06 19:14:00 80 mm[Hg] Unive rsity of [facility] [place] [facility] Heart rate 2022-12-06 19:14:00 95 /min [facility] [place] [facility] Body temperature 2022-12-06 19:14:00 37.06 Evette [facility] [place] [facility] Respiratory rate 2022-12-06 19:14:00 16 /min [facility] [place] [facility] Body height 2022-12-06 19:14:00 160 cm [facility] [place] [facility] Body weight 2022-12-06 19:14:00 90.13 kg [facility] [place] [facility] BMI 2022-12-06 19:14:00 35.20 kg/m2 [facility] [place] [facility] Oxygen saturation in 2022-12-06 19:14:00 99 /min [facility] Arterial blood by [facility] Pulse oximetry Branch Systolic blood 2022-11-25 14:48:00 110 mm[Hg] Univer sity of [facility] [place] [facility] Diastolic blood 2022-11-25 14:48:00 73 mm[Hg] Unive rsity of [facility] [place] [facility] Heart rate 2022-11-25 14:48:00 93 /min [facility] [place] [facility] [place] Body temperature 2022-11-25 14:48:00 36.61 Evette Univ [facility] [place] [facility] [place] Respiratory rate 2022-11-25 14:48:00 18 /min [facility] [place] [facility] Body height 2022-11-25 14:48:00 160 cm [facility] [place] [facility] [place] Body weight 2022-11-25 14:48:00 88.905 kg [facility] [place] [facility] BMI 2022-11-25 14:48:00 34.72 kg/m2 [facility] [place] [facility] Systolic blood 2022-11-11 19:47:00 107 mm[Hg] Univer sity of [facility] [place] [facility] Diastolic blood 2022-11-11 19:47:00 68 mm[Hg] Unive rsity of [facility] [place] [facility] Heart rate 2022-11-11 19:47:00 90 /min [facility] [place] [facility] Body temperature 2022-11-11 19:47:00 36.72 Evette [facility] [place] [facility] Respiratory rate 2022-11-11 19:47:00 18 /min [facility] [place] [facility] Body height 2022-11-11 19:47:00 160 cm [facility] [place] [facility] Body weight 2022-11-11 19:47:00 87.091 kg [facility] [place] [facility] BMI 2022-11-11 19:47:00 34.01 kg/m2 [facility] [place] [facility] Systolic blood 2022-10-28 17:13:00 105 mm[Hg] Univer sity of [facility] [place] [facility] Diastolic blood 2022-10-28 17:13:00 67 mm[Hg] Unive rsity of [facility] [place] [facility] Heart rate 2022-10-28 17:13:00 78 /min [facility] [place] [facility] Body temperature 2022-10-28 17:13:00 36.72 Evette [facility] [place] [facility] Respiratory rate 2022-10-28 17:13:00 18 /min Univ [facility] [place] [facility] Body height 2022-10-28 17:13:00 160 cm [facility] [place] [facility] Body weight 2022-10-28 17:13:00 87.091 kg [facility] [place] [facility] BMI 2022-10-28 17:13:00 34.01 kg/m2 [facility] [place] [facility] Systolic blood 2022-10-11 15:25:00 116 mm[Hg] Univer sity of [facility] [place] [facility] Diastolic blood 2022-10-11 15:25:00 74 mm[Hg] Unive rsity of [facility] [place] [facility] Heart rate 2022-10-11 15:25:00 68 /min [facility] [place] [facility] Body temperature 2022-10-11 15:25:00 36.72 Evette [facility] [place] [facility] Respiratory rate 2022-10-11 15:25:00 18 /min [facility] [place] [facility] Body height 2022-10-11 15:25:00 160 cm [facility] [place] [facility] Body weight 2022-10-11 15:25:00 85.73 kg [facility] [place] [facility] BMI 2022-10-11 15:25:00 33.48 kg/m2 [facility] [place] [facility] Systolic blood 2022-09-06 13:42:00 128 mm[Hg] Univer sity of [facility] [place] [facility] Diastolic blood 2022-09-06 13:42:00 71 mm[Hg] Unive rsity of [facility] [place] [facility] Heart rate 2022-09-06 13:42:00 88 /min [facility] [place] [facility] Body temperature 2022-09-06 13:42:00 36.78 Evette [facility] [place] [facility] Respiratory rate 2022-09-06 13:42:00 18 /min Univ [facility] [place] [facility] Body height 2022-09-06 13:42:00 160 cm [facility] [place] [facility] Body weight 2022-09-06 13:42:00 83.915 kg [facility] [place] [facility] BMI 2022-09-06 13:42:00 32.77 kg/m2 [facility] [place] [facility] Systolic blood 2022-08-09 16:00:00 106 mm[Hg] Univer sity of [facility] [place] [facility] Diastolic blood 2022-08-09 16:00:00 68 mm[Hg] Unive rsity of [facility] [place] [facility] Heart rate 2022-08-09 16:00:00 82 /min [facility] [place] [facility] Body temperature 2022-08-09 16:00:00 36.78 Evette [facility] [place] [facility] Respiratory rate 2022-08-09 16:00:00 18 /min [facility] [place] [facility] Body height 2022-08-09 16:00:00 160 cm [facility] [place] [facility] Body weight 2022-08-09 16:00:00 79.833 kg [facility] [place] [facility] BMI 2022-08-09 16:00:00 31.18 kg/m2 [facility] [place] [facility] Systolic blood 2022-07-15 16:20:00 116 mm[Hg] Univer sity of [facility] [place] [facility] Diastolic blood 2022-07-15 16:20:00 79 mm[Hg] Unive rsity of [facility] [place] [facility] Heart rate 2022-07-15 16:19:00 92 /min [facility] [place] [facility] Body temperature 2022-07-15 16:19:00 37.11 Evette [facility] [place] [facility] Respiratory rate 2022-07-15 16:19:00 18 /min [facility] [place] [facility] Body height 2022-07-15 16:19:00 160 cm [facility] [place] [facility] Body weight 2022-07-15 16:19:00 80.287 kg [facility] [place] [facility] BMI 2022-07-15 16:19:00 31.35 kg/m2 [facility] [place] [facility] Procedures Procedure Date / Time Performing Clinician Source Performed CBC WITH DIFF 2023-01-13 10:46:00 Adum, [facility] CBC WITH DIFF 2023-01-13 10:46:00 Adum, [facility] SECTION 2023-01-12 13:42:00 Adum, Merle Plasencia [facility] SALPINGECTOMY 2023-01-12 13:42:00 Adum, Merle Plasencia [facility] SECTION 2023-01-12 13:42:00 Adum, Merle Plasencia [facility] SALPINGECTOMY 2023-01-12 13:42:00 Adum, Merle Plasencia [place] [facility] ASSIGNMENT OF BENEFITS 2023-01-11 20:21:02 Doctor Unassigned, Nataly [facility] POCT URINALYSIS W/O 2023-01-04 00:00:00 Adum, Merle Plasencia [facility] DSU PRE-OP 2022-12-27 06:01:00 Doctor Unassigned, Nataly [facility] POCT URINALYSIS W/O 2022-12-27 00:00:00 Adum, Merle Plasencia [facility] POCT URINALYSIS W/O 2022-12-20 00:00:00 Adum, Merle Plasencia [facility] POCT URINALYSIS W/O 2022-12-06 00:00:00 Darrick Elam [facility] POCT URINALYSIS W/O 2022-11-25 00:00:00 Adum, Merle Plasencia [facility] STERILIZATION CONSENT 2022-11-11 06:01:00 Doctor Unassigned, Nataly [facility] POCT URINALYSIS W/O 2022-11-11 00:00:00 Adum, Merle Plasencia [facility] TDAP VACCINE, >11 YRS, 2022-10-28 17:19:00 Adum, Merle Plasencia [facility] Medical Branch FLU VACC (), 6 2022-10-28 17:19:00 Adum, Merle Plasencia [facility] MO-65 YRS, .5ML, IM, Medical Bra nch QUAD (FLUCELVAX) POCT URINALYSIS W/O 2022-10-28 00:00:00 Adum, Merle Plasencia [facility] GRAVITY [facility] POCT URINALYSIS W/O 2022-10-11 00:00:00 Adum, Merle Plasencia [facility] [place] SPECIFIC GRAVITY [facility] [place] POCT URINALYSIS W/O 2022-09-06 00:00:00 Adum, Merle Plasencia [facility] [place] SPECIFIC GRAVITY [facility] POCT URINALYSIS W/O 2022-08-09 16:05:00 Adum, Merle Plasencia [facility] [place] SPECIFIC GRAVITY [facility] EXTERNAL PROVIDER 2022-07-25 05:01:00 Doctor Unassigned, No Univ [facility] RECORDS Name Medical Branch POCT URINALYSIS W/O 2022-07-15 16:34:00 Adum, Merle Plasencia [facility] SCANNED LAB RESULTS 2022-07-15 05:01:00 Doctor Unassigned, No [facility] Name Medical Branch Encounters Start End Encounter Admission Attending Care Care Encounter Source Date/Time Date/Time Type Type Clinicians Facility Department ID 2024-05-08 2024-05-08 Outpatient R ADUM, [facility] [id number] [facility] 10:30:00 10:30:[address] [facility] 2023-06-15 2023-06-[address] [facility] [id number] [place] 10:55:31 10:55:31 [id number] F Augie 2023-06-13 2023-06-[address] [facility] [id number] August[place] 11:05:27 11:05:27 [id number] F Augie 2023-06-12 2023-06-[address] [facility] [id number] [place] 12:59:40 12:59:40 [id number] F Augie 2023-04-26 2023-04-26 Outpatient R ADUM, [facility] [id number] Univers 11:00:00 11:30:[address] [facility] 2023-04-26 2023-04-26 Routine Adum, [facility] [id number] Univers 11:00:00 11:30:31 Merle ARCHIBALD 350.1.13.10 ity of Visit WOMEN'S 4.2.7.2.686 [facility] [id number] [address] 2023-03-15 2023-03-15 Outpatient R ADUM, [facility] [id number] Univers 11:15:00 11:15:00 MERLE [facility] 2023-02-14 2023-02-14 Outpatient R ADUM, [facility] [id number] Univers 13:00:00 14:13:[address] [facility] 2023-02-14 2023-02-14 [facility] [id number] Univers 13:00:00 14:13:10 Merle ARCHIBALD 350.1.13.10 ity of Visit WOMEN'S 4.2.7.2.686 [facility] [id number] [address] 2023-02-14 2023-02-14 Outpatient R ADUM, [facility] [id number] Univers 08:45:00 08:45:00 MERLE [facility] 2023-02-08 2023-02-08 Outpatient R ADUM, [facility] [id number] Univers 13:00:00 13:00:00 MERLE [facility] 2023-01-18 2023-01-18 Outpatient R AD, [facility] [id number] Univers 13:00:00 13:51:49 MERLE [facility] 2023-01-18 2023-01-18 [facility] [id number] Univers 13:00:00 13:51:49 Merle ARCHIBALD 350.1.13.10 ity of Visit WOMEN'S 4.2.7.2.686 [facility] HEALTH [id number] [address] 2023-01-12 2023-01-14 Inpatient R ADUM, [facility] AURELIANO [id number] Univers 06:11:00 09:40:[address] [facility] 2023-01-12 2023-01-14 [facility] [id number] Univers 06:11:00 09:40:00 Encounter Merle THOMAS 350.1.13.10 ity of [place] 4.2.7.2.686 [facility] [id number] [facility] 083 Branch 2023-01-12 2023-01-12 Surgery Ad, [facility] [id number] Univers 07:50:00 10:53:00 Merle THOMAS 350.1.13.10 ity of [place] 4.2.7.2.686 [facility] [id number] [facility] 013 Branch 2023-01-11 2023-01-11 Vendor Analyst Radha, Adc Lab Main [facility] [id number] Univers 14:15:00 14:30:00 Visit Addalia, Merle THOMAS 350.1.13.10 ity of [place] 4.2.7.2.686 [facility] PROFESSIO [id number] Mn dical [address] 2023-01-11 2023-01-11 Outpatient R ADUM, [facility] [id number] Univers 14:15:00 14:15:[address] [facility] 2023-01-11 2023-01-11 Orders Doctor BRIDGETTE [id number] Univers 00:00:00 00:00:00 Only Unassigned, CARLEY 350.1.13.10 ity of [place] [facility] 4.2.7.2.686 Jesse [id number] [facility] 009 Branch 2023-01-04 2023-01-04 Outpatient R ADUM, [facility] [id number] Univers 14:00:00 14:42:23 MERLE ity of [facility] [place] 2023-01-04 2023-01-04 Routine Adum, [facility] [id number] Univers 14:00:00 14:42:23 Merle ARCHIBALD 350.1.13.10 ity of Visit WOMEN'S 4.2.7.2.686 [facility] [id number] [facility] 134 Branch 2022-12-27 2022-12-27 Outpatient R ADUM, [facility] [id number] Univers 09:30:00 09:47:24 MERLE ity of [facility] [place] 2022-12-27 2022-12-27 Routine Adum, [facility] [id number] Univers 09:30:00 09:47:24 Merle Erinn ARCHIBALD 350.1.13.10 it[place] [id number] [address] 2022-12-27 2022-12-27 Orders Doctor BRIDGETTE [id number] Univers 00:00:00 00:00:00 Only Unassigned, CARLEY 350.1.13.10 ity of [place] [facility] 4.2.7.2.686 Jesse as [id number] [address] 2022-12-20 2022-12-20 Outpatient R AD, [facility] [id number] Univers 11:15:00 11:33:[address] [facility] 2022-12-20 2022-12-20 [facility] [id number] Univers 11:15:00 11:33:03 Merle ARCHIBALD 350.1.13.10 [place] [id number] [address] 2022-12-13 2022-12-13 Outpatient R AD, [facility] [id number] Univers 10:45:00 10:45:[address] [facility] 2022-12-06 2022-12-06 Outpatient R AD, [facility] [id number] Univers 13:00:00 13:51:[address] [facility] 2022-12-06 2022-12-06 [facility] [id number] Univers 13:00:00 13:51:18 Merle ARCHIBALD 350.1.13.10 [place] [id number] [address] 2022-12-05 2022-12-05 [facility] [id number] [id number] Univers 00:00:00 00:00:00 Merle ARCHIBALD 350.1.13.10 i ty [place] [id number] [address] 2022-11-25 2022-11-25 Outpatient R ADUM, [facility] [id number] Univers 08:30:00 09:11:[address] [facility] [facility] 2022-11-25 2022-11-25 Routine Adum, [facility] 1.2.840.114 [id number] Univers 08:30:00 09:11:54 Merle Plasencia MARTHA 350.1.13.10 ity of [place] [id number] [address] 2022-11-11 2022-11-11 Outpatient R AD, [facility] [id number] Univers 13:45:00 14:22:[address] [facility] 2022-11-11 2022-11-11 Routine Ad, [facility] 1.2.840.114 [id number] Univers 13:45:00 14:22:11 Merle Plasencia MARTHA 350.1.13.10 it[place] [id number] [address] 2022-11-11 2022-11-11 Orders Doctor BRIDGETTE 1.2.840.114 [id number] Univers 00:00:00 00:00:00 Only Unassigned, CARLEY 350.1.13.10 ity of [place] [facility] 4.2.7.2.686 Jesse as [id number] [address] 2022-11-10 2022-11-10 Telephone Nurse, Adc [facility] 1.2.840.114 [id number] Univers 00:00:00 00:00:00 Women's [place] 350.1.13.10 i ty of [facility] [place] [id number] [address] 2022-11-04 2022-11-04 Case Adum, [facility] 1.2.840.114 [id number] Univers 00:00:00 00:00:00 Management Merle Plasencia MARTHA 350.1.13.10 ity of [facility] [place] [phone] Mn dical [facility] [address] [facility] 2022-11-01 2022-11-01 Vendor Analyst 2, Adc Lab [facility] 1.2.840.114 [id number] Univers 10:45:00 11:00:00 Visit Adum, Merle LOTTVEE 350.1.13.10 ity of [place] [phone] [facility] [address] [facility] 2022-11-01 2022-11-01 Outpatient R ADUM, [facility] [id number] Univers 10:45:00 10:45:[address] [facility] 2022-10-28 2022-10-28 Outpatient R ADUM, [facility] [id number] Univers 10:30:00 12:02:[address] [facility] 2022-10-28 2022-10-28 Routine Ad, [facility] 1.2.840.114 [id number] Univers 10:30:00 12:02:46 Merle Plasencia MARTHA 350.1.13.10 ity of [place] [id number] [address] 2022-10-11 2022-10-11 Outpatient R ADUM, [facility] [id number] Univers 09:30:00 09:55:[address] [facility] 2022-10-11 2022-10-11 Routine Ad, [facility] 1.2.016.576 [id number] Univers 09:30:00 09:55:05 Merle Plasencia CRISTELA 350.1.13.10 ity of [place] [facility] [id number] [address] 2022-09-16 2022-09-16 Patient Adum, [facility] 1.2.407.041 [id number] Univers 00:00:00 00:00:00 Secure Msg Merle ARCHIBALD 350.1.13.10 ity of [place] [id number] [address] 2022-09-06 2022-09-06 Outpatient R ADUM, [facility] [id number] Univers 08:00:00 09:17:46 MERLE ity of [facility] [place] [place] 2022-09-06 2022-09-06 Routine Adum, [facility] 1.2.389.485 [id number] Univers 08:00:00 09:17:46 Merle ARCHIBALD 350.1.13.10 ity of [place] [id number] [address] 2022-08-30 2022-08-30 Outpatient P MARTINEZ, [facility] [id number] Univers 11:00:00 11:46:[address] [facility] 2022-08-30 2022-08-30 Vendor Analyst Ultrasound, Adc [facility] 1.2 .840.114 [id number] Univers 11:00:00 11:46:03 Visit Elif Martinezis Benjamin THOMAS 350.1.13. 10 ity of [facility] 4.2.7.2.[place] [id number] Mn dical NAL [address] [facility] 2022-08-11 2022-08-11 Patient Adum, [facility] 1.2.840.114 [id number] Univers 00:00:00 00:00:00 Secure Msg Merle Plasencia [place] 350.1.13.10 ity of [place].2.[place] [id number] Me dical NAL [address] [facility] 2022-08-09 2022-08-09 Vendor Analyst 2, Adc Lab [facility] 1.2.840.114 [id number] Univers 11:30:00 11:45:00 Visit AdMerle gómez [place] 350.1.13.10 ity of [place] [id number] Me dical NAL [address] [facility] 2022-08-09 2022-08-09 Routine Adum, [facility] 1.2.840.114 [id number] Univers 10:45:00 11:27:54 Merle THOMAS 350.1.13.10 ity of [place] [id number] [facility] [address] [facility] 2022-08-09 2022-08-09 Outpatient R ADUM, [facility] [id number] Univers 10:45:00 11:27:54 MERLE ity of [facility] [place] 2022-07-27 2022-07-27 Telephone Ad, [facility] 1.2.345.874 [id number] Univers 00:00:00 00:00:00 Merle THOMAS 350.1.13.10 ity of [place] [id number] [address] 2022-07-25 2022-07-25 Orders Doctor BRIDGETTE 1.2.840.114 [id number] Univers 00:00:00 00:00:00 Only Unassigned, CARLEY 350.1.13.10 ity of [place] [facility] 4.2.7.2.686 Jesse as [id number] [address] 2022-07-22 2022-07-22 Refill Ad, [facility] 1.2.840.114 [id number] Univers 00:00:00 00:00:00 Merle THOMAS 350.1.13.10 ity of [place] [id number] Mn dical [address] 2022-07-15 2022-07-15 Vendor Analyst Radha, [facility] Main [facility] 1.2.8 40.114 [id number] Univers 12:15:00 12:30:00 Visit Adum, Merle THOMAS 350.1.13.10 ity of [place] [id number] Mn dical [address] 2022-07-15 2022-07-15 Outpatient R AD, [facility] [id number] Univers 11:00:00 11:57:44 MERLE ity of [facility] [place] 2022-07-15 2022-07-15 Routine Adum, [facility] 1.2.840.114 [id number] Univers 11:00:00 11:57:44 Merle THOMAS 350.1.13.10 ity of [place] [id number] Mn dical NAL [address] [facility] 2022-07-15 2022-07-15 Outpatient R ADUM, [facility] [id number] Univers 11:00:00 11:00:[address] [facility] 2022-07-15 2022-07-15 Orders Doctor BRIDGETTE 1.2.840.114 [id number] Univers 00:00:00 00:00:00 Only Unassigned, CARLEY 350.1.13.10 ity of [place] [facility] 4.2.7.2.686 Jesse as [id number] [address] 2022-06-21 2022-06-21 Telephone Adum, [facility] 1.2.298.785 [id number] Univers 00:00:00 00:00:00 Merle Plasencia [place] 350.1.13.10 ity of [facility] 4.2.[place] [id number] Mn dical NAL [address] [facility] 2022-06-20 2022-06-20 Telephone Adum, [facility] 1.2.923.809 [id number] Univers 00:00:00 00:00:00 Merle Plasencia [place] 350.1.13.10 ity of [facility] 4.2.7.2.[place] [phone] Mn dical NAL [address] [facility] 2022-06-17 2022-06-17 Vendor Analyst Radha, [facility] Main [facility] 1.2.8 40.114 [id number] Univers 12:30:00 12:45:00 Visit Adum, Merle Plasencia [place] 350.1.13.10 ity of [facility] 4.2.7.2.[place] [id number] Mn dical NAL [address] [facility] 2022-06-17 2022-06-17 Outpatient R ADUM, [facility] [id number] Univers 10:00:00 11:18:32 MERLE [facility] 2022-06-17 2022-06-17 Initial Ad, [facility] 1.2.840.114 [id number] Univers 10:00:00 11:18:32 Merle THOMAS 350.1.13.10 ity of Visit [facility] 4.2.7.2.686 Ben PRYOR [id number] Mn dical NAL [address] [facility] 2022-06-17 2022-06-17 Outpatient R ADUM, [facility] [id number] Univers 10:00:00 11:18:32 [facility] Results Test Description Test Time Test Comments Results Result Comments Source HEPATITIS B SURFACE AB 2023-06-13 05:23:36 Test Item Value Reference Range Interpretation Comme nts HEPATITIS B SURFACE AB NON-REACTIVE NON-REACTIVE UNLE SS OTHERWISE INDICATED, (test code = 2737) ALL TESTI NG PERFORMED AT CLINICAL PATHOL [place], [place] [address] LABORATORY DIRE CTOR: Ryder MUHAMMAD MICHAEL NUMBER [id number] [facility] [place]. [id number] CBC W/AUTO DIFF WITH [id number] 04:54:16 Test Item Value Reference Range Interpretation Comments WBC (test code = 6.2 K/UL 3.5-11.0 1001) RBC (test code = 4.77 M/UL 3.80-5.40 1002) HEMOGLOBIN (test code 14.5 G/DL 11.5-15.5 = 1003) HEMATOCRIT (test code 41.7 % 34.0-45.0 = 1004) MCV (test code = 87.4 fL 80.0-99.0 1005) MCH (test code = 30.4 PG 25.0-33.0 1006) MCHC (test code = 34.8 G/DL 31.0-36.0 1007) RDW (test code = 14.5 % 11.5-15.0 1038) NEUTROPHILS (test 49.5 % code = 1008) LYMPHOCYTES (test 40.9 % code = 1010) MONOCYTES (test code 6.6 % = 1011) EOSINOPHILS (test 2.3 % code = 1012) BASOPHILS (test code 0.5 % = 1013) IMMATURE GRANULOCYTES 0.2 % (test code = 1036) NUCLEATED RBCS (test 0.0 /100 WBC'S See_Comment [Aut omated code = 1065) message] The sy stem which generated this result transmitted reference range : 0.0. The refere nce range was not u sed to interpret th is result as normal/abnormal . PLATELET COUNT (test 316 K/UL 130-400 code = 1015) ABSOLUTE NEUTROPHILS 3.08 K/UL 1.50-7.50 (test code = 1066) ABSOLUTE LYMPHOCYTES 2.54 K/UL 1.00-4.00 (test code = 1067) ABSOLUTE MONOCYTES 0.41 K/UL 0.20-1.00 (test code = 1068) ABSOLUTE EOSINOPHILS 0.14 K/UL 0.00-0.50 (test code = 1040) ABSOLUTE BASOPHILS 0.03 K/UL 0.00-0.20 (test code = 1069) ABS IMMATURE 0.01 K/UL 0.00-0.10 GRANULOCYTES (test code = 1020) ABS NUCLEATED RBCS 0.00 K/UL 0.00-0.11 (test code = 62187) LIPID [id number] 04:46:03 Test Item Value Reference Range Interpretation Comments CHOLESTEROL (test 219 MG/DL <200 H code = 2210) TRIGLYCERIDES (test 147 MG/DL <150 code = 2232) HDL CHOLESTEROL (test 49 MG/DL >39 code = 2220) CALC LDL CHOL (test 143 MG/DL <100 H NOTE: C ALCULATED LDL code = 2237) IS BASED ON LISSET-MENDOZA METHOD WHICHINCLUDES ADJUSTABLE TRIGLYCERIDE:VL DL CHOLESTEROL RAT IO.THIS FACTOR VARIES B Y MEASURED TRIGLY CERIDE AND NON-HDLCHOL ESTEROL CONCENTRATIONS WITH INCREASED CALCU LATED LDL SEENIN HIGH ER TRIGLYCERIDE OR LOWER NON-HDL SPECIME NS. FOR MOREINFORMATION , SEE CLIENT ANNOUNCE MENT AT [email or web address] RATIO LDL/HDL 2.92 RATIO <3.22 (test code = 2238) COMPREHENSIVE METABOLIC [id number] 04:46:03 Test Item Value Reference Range Interpretation Comments GLUCOSE (test code = 75 MG/DL 70-99 2216) BUN (test code = 13 MG/DL 6-20 2207) CREATININE (test 0.88 MG/DL 0.60-1.30 code = 2213) eGFR (2020 CKD-EPI) 90 ML/MIN/1.73 >60 (test code = 80276) CALC BUN/CREAT (test 15 RATIO 6-28 code = 223) SODIUM (test code = 138 MEQ/L 244-022 6733) POTASSIUM (test code 4.1 MEQ/L 3.5-5.4 = 2227) CHLORIDE (test code 101 MEQ/L 95-107 = 2214) CARBON DIOXIDE (test 26 MEQ/L 19-31 code = 2205) CALCIUM (test code = 9.3 MG/DL 8.5-10.5 2208) PROTEIN, TOTAL (test 7.3 G/DL 6.1-8.3 code = 2228) ALBUMIN (test code = 4.4 G/DL 3.5-5.2 2200) CALC GLOBULIN (test 2.9 G/DL 1.9-3.7 code = 2239) CALC A/G RATIO (test 1.5 RATIO 1.0-2.6 code = 223) BILIRUBIN, TOTAL 0.4 MG/DL See_Comment [Automated message] (test code = 2206) The syste m which generated this result transmit catrachito reference range : <=1.2. The refe rence range was not u sed to interpret th is result as normal/abnormal . ALKALINE PHOSPHATASE 84 U/L 40-114 (test code = 2203) AST (test code = 16 U/L 9-40 2217) ALT (test code = 15 U/L 5-40 2218) HEMOGLOBIN [id number] 04:28:00 Test Item Value Reference Range Interpretation Comments HEMOGLOBIN A1c (test code = 03411) 5.6 % 4.2-5.6 POCT URINALYSIS W/O SPECIFIC [id number] 20:12:00 Test Item Value Reference Range Interpretation Comments POCT PH U (test code = 3254) n/a 5-8 POCT U LEUK EST (test code = n/a Negative - Negative 3262) POCT U NIT (test code = 2252) n/a Negative - Negative POCT U PROT (test code = 3259) negative Negative - Negative POCT U GLU (test code = 3256) negative Negative - Negative POCT U KETONE (test code = 3258) n/a Negative - Negative POCT U BLD (test code = 3257) n/a Negative - Negative [facility] URINALYSIS W/O SPECIFIC [id number] 15:26:00 Test Item Value Reference Range Interpretation Comments [...] code = 3257) n/a Negative - Negative [facility] URINALYSIS W/O SPECIFIC [id number] 17:18:00 Test Item Value Reference Range Interpretation Comments [...] code = 3257) n/a Negative - Negative [facility] [id number] 19:31:00 Test Item Value Reference Range Interpretation Comments POCT PH U (test code = 3254) N/A 5-8 POCT U LEUK EST (test code = N/A Negative - Negative 3263) POCT U NIT (test code = 3262) N/A Negative - Negative POCT U PROT (test code = 3259) NEGATIVE Negative - Negative POCT U GLU (test code = 3256) NEGATIVE Negative - Negative POCT U KETONE (test code = 3258) N/A Negative - Negative POCT U BLD (test code = 3257) N/A Negative - Negative [facility] URINALYSIS W/O SPECIFIC [id number] 14:55:00 Test Item Value Reference Range Interpretation Comments POCT PH U (test code = 3254) N/A 5-8 POCT U LEUK EST (test code = N/A Negative - Negative 3263) POCT U NIT (test code = 3262) N/A Negative - Negative POCT U PROT (test code = 3259) Negative Negative - Negative POCT U GLU (test code = 3256) Negative Negative - Negative POCT U KETONE (test code = 3258) N/A Negative - Negative POCT U BLD (test code = 3257) N/A Negative - Negative [facility] URINALYSIS W/O SPECIFIC [id number] 19:49:00 Test Item Value Reference Range Interpretation Comments POCT PH U (test code = 3254) N/A 5-8 POCT U LEUK EST (test code = N/A Negative - Negative 3263) POCT U NIT (test code = 3262) N/A Negative - Negative POCT U PROT (test code = 3259) Trace Negative - Negative POCT U GLU (test code = 3256) Negative Negative - Negative POCT U KETONE (test code = 3258) N/A Negative - Negative POCT U BLD (test code = 3257) N/A Negative - Negative [facility] [id number] 19:49:00 Test Item Value Reference Range Interpretation Comments POCT PH U (test code = 3254) N/A 5-8 POCT U LEUK EST (test code = N/A Negative - Negative 3263) POCT U NIT (test code = 3262) N/A Negative - Negative POCT U PROT (test code = 3259) Trace Negative - Negative POCT U GLU (test code = 3256) Negative Negative - Negative POCT U KETONE (test code = 3258) N/A Negative - Negative POCT U BLD (test code = 3257) N/A Negative - Negative [facility] [id number] 17:10:00 Test Item Value Reference Range Interpretation Comments [...] code = 3257) n/a Negative - Negative [facility] URINALYSIS W/O SPECIFIC [id number] 15:26:00 Test Item Value Reference Range Interpretation Comments [...] code = 3257) n/a Negative - Negative [facility] SPECIFIC [id number] 15:26:00 Test Item Value Reference Range Interpretation Comments [...] code = 3257) n/a Negative - Negative [facility]/O SPECIFIC [id number] 13:45:00 Test Item Value Reference Range Interpretation Comments POCT PH U (test code = 3254) N/A 5-8 POCT U LEUK EST (test code = N/A Negative - Negative 3263) POCT U NIT (test code = 3262) N/A Negative - Negative POCT U PROT (test code = 3259) Negative Negative - Negative POCT U GLU (test code = 3256) Negative Negative - Negative POCT U KETONE (test code = 3258) N/A Negative - Negative POCT U BLD (test code = 3257) N/A Negative - Negative [facility]/O SPECIFIC [id number] 16:05:00 Test Item Value Reference Range Interpretation [...] code = 3257) n/a Negative - Negative [facility] W/O SPECIFIC [id number] 16:34:00 Test Item Value Reference Range Interpretation [...] code = 3257) n/a Negative - Negative [facility]
[2023-09-30] MEDS ORDERED: ONDANSETRON 4 MG/2 ML VIAL ONE (10:50)
[2023-09-30] MEDS ORDERED: MORPHINE 4 MG/ML SYR ONE (10:50)
[2023-09-30] MEDS ORDERED: NA CHLORIDE 0.9% 1,000 ML ONE (10:50)
[2023-09-30 11:02] LABS: Absolute Lymphocytes (CBC) 2.8 K/uL (0.7-4.9); Hematocrit 42.1 % (36.0-45.0); Lymphocytes % 43.1 % (15.3-44.8); MCV 87.6 fL (80-100); Platelets 304 thou/uL (152-406); RBC Red Blood Cell Count 4.81 M/uL (3.86-4.86)
[2023-09-30 11:19] LABS: Albumin 3.6 g/dL (3.4-5.0); Bilirubin Total 0.6 mg/dL (0.2-1.0); Potassium 3.8 mEq/L (3.5-5.1); Protein, Total 7.9 g/dL (6.4-8.2)
[2023-09-30 12:49] LABS: Specific Gravity 1.012 (1.005-1.030); Urine Bilirubin NEGATIVE (Negative); Urine Blood Negative (Negative); Urine Clarity Clear (Clear); Urine Color Light-Yellow (Yellow); Urine Glucose NEGATIVE (Negative); Urine Protein NEGATIVE (Negative); Urine Urobilinogen Normal (Normal); Urine pH 5.5 (5.0-7.0)
--- NOTE | 2023-09-30 13:44 | RAD REPORT ---
EXAM DESCRIPTION: CT - Abdomen Pelvis W Contrast - 09/30/2023 1:13 pm CLINICAL HISTORY: Abdominal pain/left lower quadrant pain COMPARISON: none. TECHNIQUE: Computed axial tomography of the abdomen pelvis was obtained. 100 cc Isovue-300 was admin istered intravenously. Oral contrast was not requested which limits evaluation of bowel and appendix All CT scans are performed using dose optimization technique as appropriate and may include automated exposure control or mA/KV adjustment according to patient size. FINDINGS: The liver, spleen, pancreas, adrenal and kidneys appear unremarkable. There is no evidence of diverticulitis. No adnexal mass. Diastases rectus abdominis muscles 10 centimeters. Small to moderate umbilical hernia Cardiomegaly Postsurgical changes left hip IMPRESSION: No acute abnormality is displayed.
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
[2023-09-30] MEDS ORDERED: ACETAMINOPHEN 500 MG TAB ONE (14:08)
[2023-09-30 14:30] VITALS: BP 99/76; TEMP 98.2
[2023-09-30 14:35] VITALS: O2SAT 99
== END 2023-09-30 14:20 | disposition home or self-care (01) ==
LOC: ER 10:06
DX: R10.32 Left lower quadrant pain (principal)
CPT/HCPCS: 36415; 74177; 80053; 81003; 81025; 83690; 85025; 96374; 96375; 99284; J2405; J7030; Q9967